=== PATIENT | female | born 1960 | race Two or more races ===

== ENCOUNTER 2016-10-29 18:15 | Emergency (ER) | payer MEDICAID ==
[~2016-10-29] VITALS: Ht 165.1 cm; Wt 104.3 kg
[2016-10-29 18:50] VITALS: BP 126/49
[2016-10-29 19:23] LABS: Urine Bilirubin Negative (Negative); Urine Color Yellow (Yellow); Urine Glucose Normal (Normal); Urine Ketone Negative (Negative); Urine Nitrite Negative (Negative); Urine RBC 17 /hpf (0 - 4); Urine Squamous Epithelial Cell FEW /hpf (<5); Urine Urobilinogen Normal (Negative); Urine pH 5.5 (5.0-8.0)
[2016-10-29 19:25] LABS: Urine Blood 1+ /uL (Negative)
== END 2016-10-29 20:30 | disposition left against medical advice (07) ==
LOC: ER 18:22
DX: M54.9 Dorsalgia, unspecified (principal); Z53.21 Procedure and treatment not carried out due to patient leaving prior to being seen by health care provider
CPT/HCPCS: 81001

== ENCOUNTER 2018-07-31 12:53 | Emergency (ER) | payer MEDICAID ==
[2018-07-31 13:32] VITALS: BP 141/61
[2018-07-31] MEDS ORDERED: KETOROLAC TROMETH 60MG/2ML VIAL IM ONE (14:00)
== END 2018-07-31 14:57 | disposition home or self-care (01) ==
LOC: ER 12:53
DX: M54.16 Radiculopathy, lumbar region (principal); M47.9 Spondylosis, unspecified; N20.0 Calculus of kidney; Z87.442 Personal history of urinary calculi
CPT/HCPCS: 72100; 96372; 99283; J1885

== ENCOUNTER 2019-05-25 12:06 | Emergency (ER) | payer MEDICAID ==
[~2019-05-25] VITALS: Ht 154.9 cm; Wt 99.3 kg
[2019-05-25 14:34] VITALS: BP 121/66
[2019-05-25] MEDS ORDERED: HYDROcodone-ACET 5/325MG TAB PO ONE (15:15)
== END 2019-05-25 15:47 | disposition home or self-care (01) ==
LOC: ER 12:06
DX: S82.51XA Displaced fracture of medial malleolus of right tibia, initial encounter for closed fracture (principal); S82.831A Other fracture of upper and lower end of right fibula, initial encounter for closed fracture; M19.90 Unspecified osteoarthritis, unspecified site; Z87.442 Personal history of urinary calculi; X50.1XXA Overexertion from prolonged static or awkward postures, initial encounter; Y93.89 Activity, other specified; Y99.8 Other external cause status; Y92.89 Other specified places as the place of occurrence of the external cause
CPT/HCPCS: 29505; 73610

== ENCOUNTER → 2021-07-30 | Emergency (ER) | payer MEDICAID ==
[~2021-07-30] VITALS: Ht 152.4 cm; Wt 78.2 kg
[~2021-07-30] MED LIST: FUROSEMIDE 20 MG/2 ML VIAL IV ONE; KETOROLAC TROMETH 30 MG/ML 1ML VIAL IV ONE; SODIUM CHLORIDE 0.9% 1,000 ML IVB ONE; TAMSULOSIN HYDROCHLORIDE 0.4 MG CAP PO ONE
[2021-07-30 13:37] LABS: Basophils # (auto) 0 10 ^3/uL (0-0.2); Basophils % (auto) 0.8 % (0.0-2.0); Eosinophils # (auto) 0.1 10 ^3/uL (0-0.8); Eosinophils % (auto) 1.8 % (0.0-7.0); Hematocrit 40.7 % (36.0-46.0); Hemoglobin 13.5 g/dL (12.2-16.2); Lymphocytes % (auto) 20.7 % (10.0-50.0); Mean Corpuscular Hemoglobin 30.1 pg (28.0-32.0); Mean Corpuscular Hgb Conc. 33.1 g/dL (32.0-36.0); Monocytes # (auto) 0.3 10 ^3/uL (0-1.3); Monocytes % (auto) 6.9 % (0.0-12.0); Neutrophils # (auto) 3.5 10 ^3/uL (1.6-8.6); Neutrophils % (auto) 69.8 % (37.0-80.0); Nucleated Red Blood Cells % 0.2 %; Red Blood Cells 4.47 10^6/uL (4.0-5.20); Red Cell Distribution Width 14.3 % (11.8-14.3)
[2021-07-30 13:51] LABS: Albumin 3.8 g/dL (3.4-5.0); Calcium 8.9 mg/dL (8.5-10.1); Potassium 4.7 mmol/L (3.5-5.1)
[2021-07-30 13:56] LABS: BUN/Creatinine Ratio 15.8; Bilirubin, Total 0.7 mg/dL (0.2-1.0); Total Protein 8.2 g/dL (6.4-8.2)
[2021-07-30 18:04] VITALS: BP 128/51
== END | disposition home or self-care (01) ==
LOC: ER 12:08
DX: N20.0 Calculus of kidney (principal)
CPT/HCPCS: 36415; 74176; 80053; 83690; 85025; 96361; 96374; 96375; 99284; J1885; J1940; J7030

== ENCOUNTER 2022-01-16 13:00 | Emergency (ER) | payer MEDICAID ==
[~2022-01-16] VITALS: Ht 157.5 cm; Wt 77.1 kg
[2022-01-16 14:22] LABS: Urine Bacteria NONE SEEN /hpf (None Seen); Urine Blood 3+ /uL (Negative); Urine Specific Gravity 1.006 (1.001-1.035); Urine WBC 93 /hpf (0 - 5)
[2022-01-16] MEDS ORDERED: HYDR-4902 PO ×2 (16:45→16:50)
[2022-01-16] MEDS ORDERED: CEPH-509 PO (17:08)
[2022-01-16 18:13] VITALS: BP 107/36
== END 2022-01-16 18:14 | disposition home or self-care (01) ==
LOC: ER 13:00
DX: S33.5XXA Sprain of ligaments of lumbar spine, initial encounter (principal); M51.9 Unspecified thoracic, thoracolumbar and lumbosacral intervertebral disc disorder; N39.0 Urinary tract infection, site not specified; I10 Essential (primary) hypertension; Z79.899 Other long term (current) drug therapy; X58.XXXA Exposure to other specified factors, initial encounter; Y93.89 Activity, other specified; Y92.89 Other specified places as the place of occurrence of the external cause; Y99.8 Other external cause status
CPT/HCPCS: 72131; 74176; 81001; 93005

== ENCOUNTER 2022-04-07 16:38 | Emergency (ER) | payer MEDICAID ==
[~2022-04-07] VITALS: Ht 165.1 cm; Wt 78.0 kg
[~2022-04-07 16:38] MED LIST changes: +CEPH-509 PO; -FUROSEMIDE 20 MG/2 ML VIAL IV ONE; +HYDR-4902 PO; -KETOROLAC TROMETH 30 MG/ML 1ML VIAL IV ONE; -SODIUM CHLORIDE 0.9% 1,000 ML IVB ONE; -TAMSULOSIN HYDROCHLORIDE 0.4 MG CAP PO ONE
[2022-04-07 17:55] LABS: Albumin 3.6 g/dL (3.4-5.0); Calcium 9.2 mg/dL (8.5-10.1); Potassium 4.1 mmol/L (3.5-5.1)
[2022-04-07 17:56] LABS: Urine Bacteria FEW /hpf (None Seen); Urine Blood 2+ /uL (Negative); Urine Specific Gravity 1.004 (1.001-1.035); Urine WBC 56 /hpf (0 - 5)
[2022-04-07 17:59] LABS: BUN/Creatinine Ratio 12.6; Bilirubin, Total 0.8 mg/dL (0.2-1.0); Total Protein 7.7 g/dL (6.4-8.2)
[2022-04-07 18:00] LABS: Basophils # (auto) 0 10 ^3/uL (0-0.2); Basophils % (auto) 0.7 % (0.0-2.0); Eosinophils # (auto) 0.1 10 ^3/uL (0-0.8); Eosinophils % (auto) 1.5 % (0.0-7.0); Hematocrit 38.8 % (36.0-46.0); Hemoglobin 12.6 g/dL (12.2-16.2); Lymphocytes % (auto) 23.2 % (10.0-50.0); Mean Corpuscular Hemoglobin 29.7 pg (28.0-32.0); Mean Corpuscular Hgb Conc. 32.4 g/dL (32.0-36.0); Mean Corpuscular Volume 91.8 fL (80.0-100.0); Monocytes # (auto) 0.3 10 ^3/uL (0-1.3); Monocytes % (auto) 8.2 % (0.0-12.0); Neutrophils # (auto) 2.8 10 ^3/uL (1.6-8.6); Neutrophils % (auto) 66.4 % (37.0-80.0); Nucleated Red Blood Cells % 0.1 %; Red Blood Cells 4.23 10^6/uL (4.0-5.20); Red Cell Distribution Width 14.1 % (11.8-14.3); White Blood Cell 4.2 10^3/uL (4.4-10.8)
[2022-04-07] MEDS ORDERED: CEPH-509 PO (19:25)
[2022-04-07 19:50] VITALS: BP 126/89
== END 2022-04-07 19:56 | disposition home or self-care (01) ==
LOC: ER 16:38
DX: N39.0 Urinary tract infection, site not specified (principal)
CPT/HCPCS: 36415; 80053; 81001; 82150; 83690; 85025; 93005

== ENCOUNTER 2023-04-01 11:04 | Inpatient (IN) | payer MEDICAID ==
[~2023-04-01] VITALS: Ht 165.1 cm; Wt 100.0 kg
[2023-04-01 11:44] LABS: Basophils # (auto) 0 10 ^3/uL (0-0.2); Basophils % (auto) 1.3 % (0.0-2.0); Eosinophils # (auto) 0.2 10 ^3/uL (0-0.8); Eosinophils % (auto) 5.4 % (0.0-7.0); Hematocrit 38.1 % (36.0-46.0); Hemoglobin 12.8 g/dL (12.2-16.2); Lymphocytes % (auto) 30.5 % (10.0-50.0); Mean Corpuscular Hemoglobin 30.7 pg (28.0-32.0); Mean Corpuscular Hgb Conc. 33.5 g/dL (32.0-36.0); Mean Corpuscular Volume 91.5 fL (80.0-100.0); Monocytes # (auto) 0.2 10 ^3/uL (0-1.3); Monocytes % (auto) 7.8 % (0.0-12.0); Neutrophils # (auto) 1.7 10 ^3/uL (1.6-8.6); Nucleated Red Blood Cells % 0.7 %; Red Blood Cells 4.17 10^6/uL (4.0-5.20); Red Cell Distribution Width 13.8 % (11.8-14.3); White Blood Cell 3.1 10^3/uL (4.4-10.8)
[2023-04-01 12:00] VITALS: PULSE 41; RESP 14; O2SAT 97
[2023-04-01 12:11] LABS: Albumin 3.7 g/dL (3.4-5.0); Calcium 8.9 mg/dL (8.5-10.1); Potassium 4.6 mmol/L (3.5-5.1)
[2023-04-01 12:13] LABS: BUN/Creatinine Ratio 18.9 (10.0-20.0); Bilirubin, Total 0.6 mg/dL (0.2-1.0); Total Protein 7.1 g/dL (6.4-8.2)
[2023-04-01] MEDS ORDERED: DOCUSATE SOD 100 MG CAP PO PRN (13:45)
[2023-04-01] MEDS ORDERED: MORPHINE SULFATE INJ 2 MG/ml SYRG IV PRN (13:45)
[2023-04-01] MEDS ORDERED: ACETAMINOPHEN 325 MG TAB PO PRN (13:45)
[2023-04-01] MEDS ORDERED: NITROGLYCERIN 0.4 MG SL TAB SL PRN (13:45)
[2023-04-01] MEDS ORDERED: ALEN70TA74 PO (13:46)
[2023-04-01] MEDS ORDERED: ATOR10TA52 PO (13:46)
[2023-04-01] MEDS ORDERED: LISI10TA34 PO (13:46)
[2023-04-01] MEDS ORDERED: LEVO75TA6 PO (13:46)
[2023-04-01 19:36] VITALS: PULSE 51; RESP 14; O2SAT 96
[2023-04-01] MEDS: ATORVASTATIN 20 MG TAB PO SCH (22:48)
[2023-04-02 06:09] LABS: Basophils # (auto) 0 10 ^3/uL (0-0.2); Basophils % (auto) 1.2 % (0.0-2.0); Eosinophils # (auto) 0.2 10 ^3/uL (0-0.8); Eosinophils % (auto) 7.2 % (0.0-7.0); Hematocrit 37.2 % (36.0-46.0); Hemoglobin 12.7 g/dL (12.2-16.2); Lymphocytes # (auto) 1.3 10 ^3/uL (0.4-5.4); Lymphocytes % (auto) 37.1 % (10.0-50.0); Mean Corpuscular Hemoglobin 31.2 pg (28.0-32.0); Mean Corpuscular Hgb Conc. 34.1 g/dL (32.0-36.0); Mean Corpuscular Volume 91.4 fL (80.0-100.0); Monocytes # (auto) 0.3 10 ^3/uL (0-1.3); Monocytes % (auto) 9.2 % (0.0-12.0); Neutrophils # (auto) 1.5 10 ^3/uL (1.6-8.6); Neutrophils % (auto) 45.3 % (37.0-80.0); Nucleated Red Blood Cells % 0.4 %; Red Blood Cells 4.07 10^6/uL (4.0-5.20); Red Cell Distribution Width 13.3 % (11.8-14.3); White Blood Cell 3.4 10^3/uL (4.4-10.8)
[2023-04-02 06:34] LABS: Albumin 3.4 g/dL (3.4-5.0); Calcium 9.1 mg/dL (8.5-10.1); Potassium 3.9 mmol/L (3.5-5.1)
[2023-04-02 06:38] LABS: BUN/Creatinine Ratio 20.7 (10.0-20.0); Bilirubin, Total 0.7 mg/dL (0.2-1.0); Total Protein 6.9 g/dL (6.4-8.2)
[2023-04-02 07:20] LABS: Folate (Folic Acid) 16.78 ng/mL (5.38-24)
[2023-04-02] MEDS: LEVOTHYROXINE SODIUM 50 MCG TAB PO SCH (07:34)
[2023-04-02 08:25] VITALS: PULSE 50; RESP 18; O2SAT 99
[2023-04-02 08:33] LABS: Urine Bacteria FEW /hpf (None Seen); Urine Blood Negative /uL (Negative); Urine Clarity HAZY (Clear); Urine Color Straw (Yellow); Urine Protein, UAD Negative (Negative); Urine Specific Gravity 1.011 (1.001-1.035); Urine Urobilinogen Normal (Negative); Urine WBC 127 /hpf (0 - 5); Urine pH 5.5 (5.0-8.0)
[2023-04-02 08:50] LABS: Alcohol, Urine < 3.0 mg/dL (0-10); Amphetamine Screen, Urine NEGATIVE (NEGATIVE); Barbiturate Scree,Urine NEGATIVE (NEGATIVE); Benzodiazephine Screen, Urine NEGATIVE (NEGATIVE); Cannabinoid Screen, Urine NEGATIVE (NEGATIVE); Cocaine Screen, Urine NEGATIVE (NEGATIVE); Opiate Scree,Urine NEGATIVE (NEGATIVE); Phencyclidine Screen, Urine NEGATIVE (NEGATIVE)
[2023-04-02] MEDS: LISINOPRIL 10 MG TAB PO SCH (09:37)
[2023-04-02] MEDS: PANTOPRAZOLE 40 MG TAB PO SCH (09:37)
[2023-04-02] MEDS: ENOXAPARIN SOD 40 MG/0.4 ML SYRINGE SC SCH (09:38)
[2023-04-02 10:52] VITALS: BP 118/55; PULSE 48; RESP 14
[2023-04-02] MEDS ORDERED: cefTRIAXone 1GM/50ML D5W 50 ML IV ONE (11:30)
[2023-04-02 17:45] VITALS: BP 145/46; PULSE 46; RESP 16; TEMP 97.8; O2SAT 96
[2023-04-02 18:00] VITALS: BP 131/53; PULSE 48; RESP 16; TEMP 98; O2SAT 95
[2023-04-02 20:00] VITALS: BP 131/53; PULSE 45; PULSE 48; RESP 16; TEMP 98
[2023-04-02] MEDS: ATORVASTATIN 20 MG TAB PO SCH (21:08)
[2023-04-02 22:00] VITALS: BP 105/42; PULSE 49; RESP 18; TEMP 97.7; O2SAT 98
[2023-04-03 05:00] VITALS: BP 104/52; PULSE 47; RESP 18; TEMP 97.6; O2SAT 95
[2023-04-03] MEDS: LEVOTHYROXINE SODIUM 50 MCG TAB PO SCH (06:00)
[2023-04-03 07:01] LABS: Basophils # (auto) 0 10 ^3/uL (0-0.2); Basophils % (auto) 1.1 % (0.0-2.0); Eosinophils # (auto) 0.2 10 ^3/uL (0-0.8); Hematocrit 38.1 % (36.0-46.0); Hemoglobin 12.8 g/dL (12.2-16.2); Lymphocytes # (auto) 1.1 10 ^3/uL (0.4-5.4); Lymphocytes % (auto) 29.3 % (10.0-50.0); Mean Corpuscular Hemoglobin 31.1 pg (28.0-32.0); Mean Corpuscular Hgb Conc. 33.7 g/dL (32.0-36.0); Mean Corpuscular Volume 92.5 fL (80.0-100.0); Monocytes # (auto) 0.4 10 ^3/uL (0-1.3); Monocytes % (auto) 10.4 % (0.0-12.0); Neutrophils # (auto) 2.1 10 ^3/uL (1.6-8.6); Neutrophils % (auto) 53.2 % (37.0-80.0); Nucleated Red Blood Cells % 0.2 %; Red Blood Cells 4.12 10^6/uL (4.0-5.20); Red Cell Distribution Width 13.8 % (11.8-14.3); White Blood Cell 3.9 10^3/uL (4.4-10.8)
[2023-04-03 07:30] VITALS: BP 131/53; PULSE 42; PULSE 48; RESP 16; TEMP 98
[2023-04-03 07:59] LABS: Potassium 3.7 mmol/L (3.5-5.1)
[2023-04-03 08:07] LABS: BUN/Creatinine Ratio 20.4 (10.0-20.0); Calcium 9.3 mg/dL (8.5-10.1)
[2023-04-03] MEDS: ENOXAPARIN SOD 40 MG/0.4 ML SYRINGE SC SCH (08:53)
[2023-04-03] MEDS: cefTRIAXone 1GM/50ML D5W 50 ML IV SCH ×2 (08:53→09:00)
[2023-04-03] MEDS: PANTOPRAZOLE 40 MG TAB PO SCH (08:53)
[2023-04-03] MEDS: LISINOPRIL 10 MG TAB PO SCH (08:54)
[2023-04-03 09:00] VITALS: BP 119/48; PULSE 53; RESP 18; TEMP 97.9; O2SAT 97
[2023-04-03] MEDS ORDERED: NITR-52 PO (10:25)
[2023-04-03 13:00] VITALS: BP 122/57; PULSE 51; RESP 20; TEMP 98.1; O2SAT 97
[2023-04-03 13:58] VITALS: BP 119/48; TEMP 98
[2023-04-03 16:25] VITALS: BP 101/42; PULSE 50; RESP 17; TEMP 98.2; O2SAT 94
== END 2023-04-03 16:00 | disposition home or self-care (01) | DRG 204 ==
LOC: ER 11:04 → EDBD 11:04 → TELE 13:45 → TELE-WESTW 04-02 17:25
PROVIDERS: ADMIT Internal Medicine Pulmonary Disease; ATTEND Internal Medicine
DX: R55 Syncope and collapse (principal); D70.9 Neutropenia, unspecified; R00.1 Bradycardia, unspecified; I10 Essential (primary) hypertension; E03.9 Hypothyroidism, unspecified; E66.9 Obesity, unspecified; E78.5 Hyperlipidemia, unspecified; N39.0 Urinary tract infection, site not specified; Z68.36 Body mass index [BMI] 36.0-36.9, adult; Z87.442 Personal history of urinary calculi; Z71.3 Dietary counseling and surveillance
CPT/HCPCS: 36415; 70450; 71045; 80048; 80053; 80061; 80307; 81001; 82607; 82746; 83036; 83735; 83880; 84439; 84443; 84479; 84484; 85025; 93005; 93017; 93306; 96365; 96372; G0378; J0696

== ENCOUNTER 2023-11-06 11:59 | Emergency (ER) | payer MEDICAID ==
[~2023-11-06] VITALS: Ht 152.4 cm; Wt 82.4 kg
[~2023-11-06 11:59] MED LIST changes: +ALEN70TA74 PO; +ATOR10TA52 PO; -CEPH-509 PO; +LEVO75TA6 PO; +LISI10TA34 PO; +NITR-52 PO
[2023-11-06 13:15] LABS: Urine Bacteria FEW /hpf (None Seen); Urine Blood Negative /uL (Negative); Urine Clarity HAZY (Clear); Urine Hyaline Cast FEW /lpf (0 - 2); Urine Protein, UAD Negative (Negative); Urine Specific Gravity 1.007 (1.001-1.035); Urine Urobilinogen Normal (Negative); Urine WBC 120 /hpf (0 - 5)
[2023-11-06 13:18] LABS: Urine Color Straw (Yellow)
[2023-11-06 13:30] LABS: Basophils # (auto) 0.1 10 ^3/uL (0-0.2); Basophils % (auto) 1.3 % (0.0-2.0); Eosinophils # (auto) 0.2 10 ^3/uL (0-0.8); Eosinophils % (auto) 4.4 % (0.0-7.0); Hematocrit 38.3 % (36.0-46.0); Hemoglobin 12.9 g/dL (12.2-16.2); Lymphocytes # (auto) 0.9 10 ^3/uL (0.4-5.4); Lymphocytes % (auto) 24.6 % (10.0-50.0); Mean Corpuscular Hgb Conc. 33.7 g/dL (32.0-36.0); Mean Corpuscular Volume 92.2 fL (80.0-100.0); Monocytes # (auto) 0.2 10 ^3/uL (0-1.3); Monocytes % (auto) 6.1 % (0.0-12.0); Neutrophils # (auto) 2.4 10 ^3/uL (1.6-8.6); Neutrophils % (auto) 63.6 % (37.0-80.0); Nucleated Red Blood Cells % 0.1 %; Red Blood Cells 4.16 10^6/uL (4.0-5.20); Red Cell Distribution Width 13.4 % (11.8-14.3); White Blood Cell 3.8 10^3/uL (4.4-10.8)
[2023-11-06 13:33] LABS: Chloride 108 mmol/L (98-107); Potassium 4.2 mmol/L (3.5-5.1); Sodium 141 mmol/L (136-145)
[2023-11-06 13:34] LABS: Anion Gap 5 (5-15); Calcium 9.8 mg/dL (8.5-10.1); Carbon Dioxide 28 mmol/L (20-30)
[2023-11-06] MEDS: SODIUM CHLORIDE 0.9% 1,000 ML IVB ONE (13:35)
[2023-11-06] MEDS: KETOROLAC TROMETH 30 MG/ML 1ML VIAL IV ONE (13:35)
[2023-11-06 13:39] LABS: BUN/Creatinine Ratio 8.3 (10.0-20.0); Blood Urea Nitrogen 8 mg/dL (9-23); Glucose 76 mg/dL (74-106)
[2023-11-06] MEDS ORDERED: HYDR-4902 PO (14:08)
[2023-11-06] MEDS ORDERED: NITR-87 PO (14:08)
[2023-11-06 14:53] VITALS: BP 130/60; PULSE 59; RESP 19; TEMP 98; O2SAT 98
== END 2023-11-06 14:59 | disposition home or self-care (01) ==
LOC: ER 11:59
DX: N39.0 Urinary tract infection, site not specified (principal); R10.9 Unspecified abdominal pain; I10 Essential (primary) hypertension; Z87.442 Personal history of urinary calculi; Z90.89 Acquired absence of other organs
CPT/HCPCS: 36415; 74176; 80048; 81001; 85025; 96361; 96374; 99285; J1885; J7030

== ENCOUNTER 2024-01-20 11:52 | Inpatient (IN) | payer MEDICAID ==
[~2024-01-20] VITALS: Ht 160 cm; Wt 83.5 kg
[~2024-01-20 11:52] MED LIST changes: +NITR-87 PO
[2024-01-20] MEDS: ONDANSETRON HCL 4 MG/2 ML VIAL IV ONE (12:46)
[2024-01-20] MEDS: ASPirin 325 MG TAB PO ONE (12:46)
[2024-01-20] MEDS: MORPHINE SULFATE INJ 2 MG/ml SYRG IV ONE (12:47)
[2024-01-20 12:48] LABS: Basophils # (auto) 0.1 10 ^3/uL (0-0.2); Eosinophils # (auto) 0.2 10 ^3/uL (0-0.8); Hematocrit 38.4 % (36.0-46.0); Hemoglobin 12.9 g/dL (12.2-16.2); Lymphocytes # (auto) 0.9 10 ^3/uL (0.4-5.4); Lymphocytes % (auto) 16.7 % (10.0-50.0); Mean Corpuscular Hemoglobin 30.6 pg (28.0-32.0); Mean Corpuscular Hgb Conc. 33.6 g/dL (32.0-36.0); Mean Corpuscular Volume 91.2 fL (80.0-100.0); Monocytes # (auto) 0.3 10 ^3/uL (0-1.3); Monocytes % (auto) 5.9 % (0.0-12.0); Neutrophils % (auto) 72.4 % (37.0-80.0); Red Blood Cells 4.21 10^6/uL (4.0-5.20); Red Cell Distribution Width 13.5 % (11.8-14.3); White Blood Cell 5.5 10^3/uL (4.4-10.8)
[2024-01-20 12:50] LABS: Chloride 106 mmol/L (98-107); Potassium 4.4 mmol/L (3.5-5.1); Sodium 138 mmol/L (136-145)
[2024-01-20 12:51] LABS: Anion Gap 5 (5-15); Calcium 9.9 mg/dL (8.5-10.1); Carbon Dioxide 27 mmol/L (20-30)
[2024-01-20 12:56] LABS: Blood Urea Nitrogen 15 mg/dL (9-23); Glucose 89 mg/dL (74-106)
[2024-01-20 14:27] LABS: Urine Bacteria None Seen /hpf (None Seen)
[2024-01-20 15:00] LABS: Urine Blood 2+ /uL (Negative); Urine Clarity Clear (Clear); Urine Color Colorless (Yellow); Urine Protein, UAD Negative (Negative); Urine Specific Gravity 1.005 (1.001-1.035); Urine Urobilinogen Normal (Negative); Urine WBC 50 /hpf (0 - 5)
[2024-01-20] MEDS ORDERED: ACETAMINOPHEN 325 MG TAB PO PRN ×2 (15:30)
[2024-01-20] MEDS ORDERED: MORPHINE SULFATE INJ 2 MG/ml SYRG IV PRN ×2 (15:30)
[2024-01-20] MEDS ORDERED: HYDROcodone-ACET 5/325MG TAB PO PRN (15:30)
[2024-01-20] MEDS ORDERED: NITROGLYCERIN 0.4 MG SL TAB SL PRN (15:30)
[2024-01-20] MEDS: IOHEXOL 350 MG/ML 100ML IJ ONE (15:47)
[2024-01-20] MEDS: SODIUM CHLORIDE 0.9% 1,000 ML IV SCH (15:51)
[2024-01-20 16:07] LABS: Triglycerides 177 mg/dL (< 150)
[2024-01-20 16:08] LABS: LDL Cholesterol 88 mg/dL (< 100)
[2024-01-20 16:09] LABS: Cholesterol 156 mg/dL (< 200); HDL Cholesterol 42 mg/dL (40-59)
[2024-01-20 16:56] VITALS: BP 117/46; PULSE 52; RESP 14; TEMP 97.6; O2SAT 98
[2024-01-20] MEDS ORDERED: ATORVASTATIN 20 MG TAB PO SCH (22:00)
[2024-01-21] MEDS ORDERED: LEVOTHYROXINE SODIUM 50 MCG TAB PO SCH (07:00)
[2024-01-21] MEDS ORDERED: ASPirin 81 mg TAB PO SCH (10:00)
[2024-01-21] MEDS ORDERED: ENOXAPARIN SOD 40 MG/0.4 ML SYRINGE SC SCH (10:00)
[2024-01-21] MEDS ORDERED: LISINOPRIL 5 MG TAB PO SCH (10:00)
== END 2024-01-21 00:01 | disposition left against medical advice (07) | DRG 198 ==
LOC: ER 11:52 → TELE 15:32
PROVIDERS: ADMIT Registered Nurse; ATTEND Registered Nurse
DX: I24.9 Acute ischemic heart disease, unspecified (principal); E03.9 Hypothyroidism, unspecified; E66.9 Obesity, unspecified; I10 Essential (primary) hypertension; Z53.29 Procedure and treatment not carried out because of patient's decision for other reasons; E78.5 Hyperlipidemia, unspecified; E11.9 Type 2 diabetes mellitus without complications; Z68.32 Body mass index [BMI] 32.0-32.9, adult; Z87.442 Personal history of urinary calculi; Z79.899 Other long term (current) drug therapy; Z79.4 Long term (current) use of insulin
CPT/HCPCS: 36415; 70450; 71045; 71275; 80048; 80061; 81001; 83036; 84443; 84484; 85025; 85379; 93005; 93970; 96374; 96375; G0378; J2405

== ENCOUNTER 2024-02-03 09:25 | Day surgery (SDC) | payer MEDICAID ==
[~2024-02-03] VITALS: Ht 154.9 cm; Wt 83.0 kg
[2024-02-03] VITALS (8 sets, daily range): BP systolic 111–161; BP diastolic 65–96; PULSE 52–57; RESP 15–20; TEMP 97.8; O2SAT 95–99
[~2024-02-03 09:25] MED LIST changes: -HYDR-4902 PO; -NITR-52 PO; -NITR-87 PO
[2024-02-03] MEDS ORDERED: ANGIOMAX 250 MG VIAL IV ONE (11:11)
[2024-02-03] MEDS ORDERED: VERAPAMIL 2.5MG/ML INJ 2ML VIAL IV ONE (11:11)
[2024-02-03] MEDS ORDERED: MIDAZOLAM HCL 2MG/2ML 2ml VIAL (1mg/ml) ONE (11:12)
[2024-02-03] MEDS ORDERED: fentaNYL CITRATE 100 MCG/2 ML VL ONE (11:12)
[2024-02-03] MEDS ORDERED: IODIXANOL 320MG/ML 100ML BTL IV ONE (11:12)
[2024-02-03] MEDS ORDERED: SODIUM CHL 0.9% 0 ML ONE (11:12)
[2024-02-03] MEDS ORDERED: LIDOCAINE 2%HCL (LOCAL ANESTH.) INJ 20ML MDV ONE (11:41)
[2024-02-03] MEDS ORDERED: HEPARIN SODIUM (PORCINE) 5000 UNITS/ML 1ML VIAL ONE (11:57)
== END 2024-02-03 14:50 | disposition home or self-care (01) ==
LOC: CATH 09:25
PROVIDERS: ATTEND Internal Medicine
DX: R94.39 Abnormal result of other cardiovascular function study (principal); I25.118 Atherosclerotic heart disease of native coronary artery with other forms of angina pectoris; I10 Essential (primary) hypertension; R07.9 Chest pain, unspecified; E78.00 Pure hypercholesterolemia, unspecified; E03.9 Hypothyroidism, unspecified; Z79.890 Hormone replacement therapy; Z79.899 Other long term (current) drug therapy; Z98.890 Other specified postprocedural states; Z82.49 Family history of ischemic heart disease and other diseases of the circulatory system; Z80.9 Family history of malignant neoplasm, unspecified
CPT/HCPCS: 93458; C1769; C1894; J1644; J2250; J3010; Q9967; 99152

== ENCOUNTER 2024-03-17 09:59 | Emergency (ER) | payer MEDICAID ==
[~2024-03-17] VITALS: Ht 152.4 cm; Wt 81.3 kg
[2024-03-17] MEDS: ACETAMINOPHEN 325 MG TAB PO ONE (10:25)
[2024-03-17 11:10] VITALS: BP 113/58; PULSE 66; RESP 17; O2SAT 95
[2024-03-17 11:15] VITALS: TEMP 99.7
[2024-03-17 12:53] LABS: COVID19 ANTIGEN SOFIA FIA NEGATIVE (NEGATIVE)
[2024-03-17 12:54] LABS: Rapid Influenza A Negative (Negative); Rapid Influenza B Negative (Negative)
[2024-03-17] MEDS ORDERED: IBUP-1455 PO (13:28)
[2024-03-17] MEDS ORDERED: PROM1SOL4 PO (13:28)
== END 2024-03-17 13:48 | disposition home or self-care (01) ==
LOC: ER 09:59
DX: B34.9 Viral infection, unspecified (principal); E11.9 Type 2 diabetes mellitus without complications; I10 Essential (primary) hypertension; Z90.89 Acquired absence of other organs; Z20.822 Contact with and (suspected) exposure to COVID-19; Z87.442 Personal history of urinary calculi
CPT/HCPCS: 36415; 87426; 87804

== ENCOUNTER 2024-10-08 11:43 | Inpatient (IN) | payer MEDICAID ==
[~2024-10-08] VITALS: Ht 154.9 cm; Wt 86.1 kg
[~2024-10-08 11:43] MED LIST changes: +IBUP-1455 PO; +PROM1SOL4 PO
--- NOTE | 2024-10-08 12:20 | ED.PDOC ---
HPI Comments 64 y/o F, presents to the ED for CC chest pain. Patient states, she was at PCP's office for routine follow up when she was relayed to the ED for left sided non- radiating chest pain. Patient comments on, experiencing chest pain x months which has never cause her concern. Patient denies shortness of breath, fever, chills, body-aches, or N/V/D. No other symptoms or modifying factors at this time. Chief Complaint: Chest Pain Time Seen by MD: 12:00 Primary Care Provider: RIVAS Reviewed Notes: Nurses Notes, Medications, Allergies Allergies: Coded Allergies: NO KNOWN ALLERGIES (Unverified , 01/31/24) Home Meds Active Scripts Promethazine-Dm (Promethazine Dm 6.25-15 mg/5Ml) 1 Jessica Jessica, 10 JESSICA PO TID PRN, #200 ML Prov:JOSE LUIS JUAREZ 03/17/24 Ibuprofen Micronized (Ibuprofen) 800 Mg Tab, 800 MG PO TID PRN, #30 TAB Prov:JOSE LUIS JUAREZ 03/17/24 Reported Medications Atorvastatin Calcium (ATORVASTATIN CALCIUM) 10 Mg Tab, 1 TAB PO DAILY for high cholesterol 04/01/23 Alendronate Sodium (Alendronate Sodium) 70 Mg Tab, 1 TAB PO QWEEKLY for osteoporosis 04/01/23 Lisinopril (Lisinopril) 10 Mg Tab, 1 TAB PO DAILY for htn 04/01/23 Levothyroxine Sodium (Levothyroxine Sodium) 75 Mcg Tab, 1 TAB PO DAILY for low thyroid 04/01/23 Information Source: Patient Mode of Arrival: Ambulatory Severity: Moderate Timing: Months Duration: Since onset Prehospital treatment: None Location: Chest (L) Radiation: No Radiation Onset: At Rest Cardiac Risk Factors: None PE Risk Factors: None History of: None Modifying Factors: Nothing Associated Signs and Symptoms: None Past Medical History PAST MEDICAL HISTORY: DM, HTN, Kidney Stones Surgical History: Thyroidectomy SAMPLE COORDINATOR History: Denies all SAMPLE COORDINATOR Hx Family History Family History: Unknown Social History Smoker: Non-Smoker Alcohol: Denies ETOH Use Drugs: Denies Drug Use Lives In: Home Constitutional: denies: chills, diaphoresis, fatigue, fever, malaise, sweats, weakness, others EENTM: denies: blurred vision, double vision, ear bleeding, ear discharge, ear drainage, ear pain, ear ringing, eye pain, eye redness, hearing loss, mouth pain, mouth swelling, nasal discharge, nose bleeding, nose congestion, nose pain, photophobia, tearing, throat pain, throat swelling, voice changes, others Respiratory: denies: cough, hemoptysis, orthopnea, SOB at rest, shortness of breath, SOB with excertion, stridor, wheezing, others Cardiovascular: denies: chest pain, dizzy spells, diaphoresis, Dyspnea on exertion, edema, irregular heart beat, left arm pain, lightheadedness, palpitations, PND, syncope, others Gastrointestinal: denies: abdomen distended, abdominal pain, blood streaked bowels, constipated, diarrhea, dysphagia, difficulty swallowing, hematemesis, melena, nausea, poor appetite, poor fluid intake, rectal bleeding, rectal pain, vomiting, others Genitourinary: denies: abnormal vagina bleeding, burning, dyspareunia, dysuria, flank pain, frequency, hematuria, incontinence, pain, , vagina discharge, urgency, others Neurological: denies: dizziness, fainting, headache, left sided numbness, left sided weakness, numbness, paresthesia, pre-existing deficit, right sided numbness, right sided weakness, seizure, speech problems, tingling, tremors, weakness, others Musculoskeletal: denies: back pain, gout, joint pain, joint swelling, muscle pain, muscle stiffness, neck pain, others Integumetry: denies: bruises, change in color, change in hair/nails, dryness, laceration, lesions, lumps, rash, wounds, others Allergic/Immunocompromised: denies: Difficulty Healing, Frequent Infections, Hives, Itching, others Hematologic/Lymphatic: denies: anemia, blood clots, easy bleeding, easy bruising, swollen glands, others Endocrine: denies: excessive hunger, excessive sweating, excessive thirst, excessive urination, flushing, intolerance to cold, intolerance to heat, unex plained weight gain, unexplained weight loss, others Psychiatric: denies: anxiety, bipolar disorder, depression, hopeless, panic disorder, schizophrenia, sleepless, suicidal, others All Other Systems: Reviewed and Negative Physical Exam General Appearance: Mild Distress HEENT: Normal ENT Inspection, Pharynx Normal, TMs Normal Neck: Full Range of Motion, Non-Tender, Normal, Normal Inspection Respiratory: Chest Non-Tender, Lungs Clear, No Accessory Muscle Use, No Respiratory Distress, Normal Breath Sounds Cardiovascular: Bradycardia, No Edema, No JVD, No Murmur, No Gallop Breast Exam: Deferred Gastrointestinal: No Organomegaly, Non Tender, No Pulsatile Mass, Normal Bowel Sounds, Soft Genitalia: Deferred Pelvic: Deferred Rectal: Deferred Extremities: No calf tenderness, Normal capillary refill, Normal inspection, Normal range of motion, Non-tender, No pedal edema Musculoskeletal : Apperance: Normal Neurologic: Alert, manager military II-XII nml as Tested, No Motor Deficits, Normal Affect, Normal Mood, No Sensory Deficits Cerebellar Function: Normal Reflexes: Normal Skin: Dry, Normal Color, Warm Lymphatic: No Adenopathy EKG EKG : Pulse Rate (adult): 46 Bristow: Normal Cardiac Rhythm: SB Was a procedure done? Was a procedure done?: No CP Differential Dx Differential Diagnosis: N/A Differential Diagnosis: CHF Differential Diagnosis: Angina, Chest Wall Pain, Costochondritis X-Ray, Labs, Meds, VS Vital Signs Date Time Temp Pulse Resp B/P (MAP) Pulse Ox O2 Delivery O2 Flow Rate FiO2 10/08/24 13:00 110/41 10/08/24 12:50 42 10/08/24 12:31 43 10/08/24 12:31 46 10/08/24 12:04 46 10/08/24 12:00 97.6 45 18 125/39 (67) 98 Lab Test 10/08/24 13:11 10/08/24 12:13 Range/Units Troponin I High Sensitivity Pending 12 </=34 ng/L Thyroid Stimulating Hormone (TSH) Pending White Blood Count 3.4 L 4.4-10.8 10^3/uL Red Blood Count 4.10 4.0-5.20 10^6/uL Hemoglobin 12.6 12.2-16.2 g/dL Hematocrit 38.3 36.0-46.0 % Mean Corpuscular Volume 93.5 80.0-100.0 fL Mean Corpuscular Hemoglobin 30.9 28.0-32.0 pg Mean Corpuscular Hemoglobin Concent 33.0 32.0-36.0 g/dL Red Cell Distribution Width 13.8 11.8-14.3 % Platelet Count 142 140-450 10^3/uL Mean Platelet Volume 7.9 6.9-10.8 fL Neutrophils (%) (Auto) 59.5 37.0-80.0 % Lymphocytes (%) (Auto) 26.7 10.0-50.0 % Monocytes (%) (Auto) 7.0 0.0-12.0 % Eosinophils (%) (Auto) 5.6 0.0-7.0 % Basophils (%) (Auto) 1.2 0.0-2.0 % Neutrophils # (Auto) 2.1 1.6-8.6 10 ^3/uL Lymphocytes # (Auto) 0.9 0.4-5.4 10 ^3/uL Monocytes # (Auto) 0.2 0-1.3 10 ^3/uL Eosinophils # (Auto) 0.2 0-0.8 10 ^3/uL Basophils # (Auto) 0 0-0.2 10 ^3/uL Nucleated Red Blood Cells 0.1 % Sodium Level 141 136-145 mmol/L Potassium Level 4.7 3.5-5.1 mmol/L Chloride Level 108 H 98-107 mmol/L Carbon Dioxide Level 28 20-31 mmol/L Anion Gap 5 5-15 Blood Urea Nitrogen 12 9-23 mg/dL Creatinine 1.03 H 0.550-1.02 mg/dL Glomerular Filtration Rate Calc 61 >90 mL/min BUN/Creatinine Ratio 11.7 10.0-20.0 Serum Glucose 94 74-106 mg/dL Calcium Level 10.1 8.7-10.4 mg/dL Magnesium Level 1.8 1.6-2.6 mg/dL Total Bilirubin 0.5 0.2-1.0 mg/dL Aspartate Amino Transferase (AST) 18 13-40 U/L Alanine Aminotransferase (ALT) 21 7-40 U/L Alkaline Phosphatase 82 46-116 U/L Total Protein 6.9 5.7-8.2 g/dL Albumin 4.4 3.2-4.8 g/dL Current Medications Medications (Trade) Dose Ordered Sig/Linda Route Start Time Stop Time Status Last Admin Dopamine HCl/ Dextrose 250 ml @ 13.688 mls/ hr [id number] ONCE IV 10/08/24 12:30 10/09/24 06:45 10/08/24 13:00 IV Hep-Lock was established. The CBC and chemistry panel is within normal limits. The patient's troponin level is negative At this time, the patient will be admitted to the hospitalist. The patient was remained bradycardic with this the 2nd EKG We did contact Cardiology and they are aware of the patient They will be consulting on this patient We feel that this patient most likely is a complete heart block and will need a pacemaker The patient was being admitted at this time We have discussed the findings with the patient and they are in agreement with the management. Images Reviewed?: Images reviewed and evaluated by me Time of 1ST Reevaluation: 12:30 Reevaluation 1ST: Unchanged Patient Education/Counseling: Diagnosis, Treatment, Prognosis Family Education/Counseling: No Family Present Departure 1 Departure Time of Disposition: 13:28 Impression: Primary Impression: Complete heart block Disposition: ADMITTED INPATIENT Admit to: [facility] Condition: Guarded Critical Care Note Critical Care Time?: Yes (45 min-critical care time only) Stability Stability form required: Yes Unstable for transfer: ICU, CCU, PCU, [facility] (Intensive VS monitoring), ED Physician Assesment (Clinical assesment) Heart Score Heart Score: Heart Score Response (Comments) Value History Moderate Suspicious 1 EKG Repolarization Disturb 1 Age 45-64 1 Risk Factors 1 or 2 risk factors 1 Troponin Normal limit 0 Total 4 I personally scribed for KRISTINA LANGE MD ([email or web address]) on 10/08/24 at 12:20. Elec tronically submitted by Dawna Boyer ([email or web address]). I personally scribed for KRISTINA LANGE MD ([email or web address]) on 10/08/24 at 12:28. Electronically submitted by Dawna Boyer ([email or web address]). KRISTIAN LANGE MD Oct 08, 2024 12:20
--- NOTE | 2024-10-08 12:26 | DVH ---
CHEST RADIOGRAPH Indication: CP Technique: Frontal and lateral view of the chest was obtained Comparison: None FINDINGS: Lines and Tubes: None Lungs: Clear Pleura: No effusion. No pneumothorax. Cardiomediastinal contours: Unremarkable Bones: Unremarkable IMPRESSION: No evidence of acute disease.
[2024-10-08 12:32] LABS: Basophils # (auto) 0 10 ^3/uL (0-0.2); Basophils % (auto) 1.2 % (0.0-2.0); Eosinophils # (auto) 0.2 10 ^3/uL (0-0.8); Eosinophils % (auto) 5.6 % (0.0-7.0); Hematocrit 38.3 % (36.0-46.0); Hemoglobin 12.6 g/dL (12.2-16.2); Lymphocytes # (auto) 0.9 10 ^3/uL (0.4-5.4); Lymphocytes % (auto) 26.7 % (10.0-50.0); Mean Corpuscular Hemoglobin 30.9 pg (28.0-32.0); Mean Corpuscular Volume 93.5 fL (80.0-100.0); Monocytes # (auto) 0.2 10 ^3/uL (0-1.3); Neutrophils # (auto) 2.1 10 ^3/uL (1.6-8.6); Neutrophils % (auto) 59.5 % (37.0-80.0); Nucleated Red Blood Cells % 0.1 %; Platelet Count (auto) 142 10^3/uL (140-450); Red Cell Distribution Width 13.8 % (11.8-14.3); White Blood Cell 3.4 10^3/uL (4.4-10.8)
[2024-10-08 12:55] LABS: Alanine Aminotransferase 21 U/L (7-40); Albumin 4.4 g/dL (3.2-4.8); Alkaline Phosphatase 82 U/L (46-116); Anion Gap 5 (5-15); Aspartate Aminotransferase 18 U/L (13-40); BUN/Creatinine Ratio 11.7 (10.0-20.0); Blood Urea Nitrogen 12 mg/dL (9-23); Calcium 10.1 mg/dL (8.7-10.4); Carbon Dioxide 28 mmol/L (20-31); Glucose 94 mg/dL (74-106); Magnesium 1.8 mg/dL (1.6-2.6); Potassium 4.7 mmol/L (3.5-5.1); Sodium 141 mmol/L (136-145)
[2024-10-08 12:56] LABS: Bilirubin, Total 0.5 mg/dL (0.2-1.0); Total Protein 6.9 g/dL (5.7-8.2)
[2024-10-08 13:00] LABS: Chloride 108 mmol/L (98-107)
[2024-10-08] MEDS: DOPamine 1600MCG/ML D5W 250 ML IV ONE (13:00)
--- NOTE | 2024-10-08 14:06 | DVHINCON2 ---
GILES BOB [facility] 10/08/24 1406: Date Seen: Oct 08, 2024 Referring Physician MD Yvan Reason for Consultation Chest pain and bradycardia History of Present Illness This is a 64-year-old female patient who presents to the emergency room after being prompted by her primary care physician to come for bradycardia. The patient reports that she was originally at her primary care physician's office (Dr. Canales) and was told that her heart rate was low and that she needed to come to the emergency room. She came to the emergency room for further evaluation. While she is here, she also mentioned that she has been having chest pain for approximately three weeks' duration. At the time of assessment, she denies any chest pain. But states that since she is here she would like to let us know that she been having intermittent chest pain. She describes it as unprovoked, intermittent, a "pinching" sensation, and left-sided without any radiation. She denies any associated symptoms. Cardiology has now been consulted for further workup. Initial twelve lead electrocardiogram reveals sinus bradycardia heart rate in low 40s. Initial troponin level of 12ng/L. Significant past medical history includes hypertension, dyslipidemia, thyroid disease, kidney stones, and osteoporosis. The patient reports she was also recently diagnosed with breast cancer in June 2024. She states that she has not had any kind of treatment as they are planning for a mastectomy, but have told her that she would need to be evaluated by Cardiology first. Apparently, the patient reports that she has been told in the past that she may eventually need a pacemaker. The patient reports that she sees a transport coordinator , , in the outpatient setting. She reports a recent visit with him last month in which there were no plans for pacemaker at that time. Past Medical History Past medical history reviewed. No other significant than mentioned above. Past Surgical History Thyroidectomy Family History: FH: cancer G8 MOTHER G8 FATHER Family History Family history reviewed. Social History Denies the use of tobacco, alcohol or illicit drugs. Allergies: Coded Allergies: NO KNOWN ALLERGIES (Unverified , 01/31/24) Home Meds Active Scripts Promethazine-Dm (Promethazine Dm 6.25-15 mg/5Ml) 1 Jessica Jessica, 10 JESSICA PO TID PRN, #200 ML Prov:JOSE LUIS JUAREZ [facility] 03/17/24 Ibuprofen Micronized (Ibuprofen) 800 Mg Tab, 800 MG PO TID PRN, #30 TAB Prov:JOSE LUIS JUAREZ 03/17/24 Reported Medications Atorvastatin Calcium (ATORVASTATIN CALCIUM) 10 Mg Tab, 1 TAB PO DAILY for high cholesterol 04/01/23 Alendronate Sodium (Alendronate Sodium) 70 Mg Tab, 1 TAB PO QWEEKLY for osteoporosis 04/01/23 Lisinopril (Lisinopril) 10 Mg Tab, 1 TAB PO DAILY for htn 04/01/23 Levothyroxine Sodium (Levothyroxine Sodium) 75 Mcg Tab, 1 TAB PO DAILY for low thyroid 04/01/23 Home Meds Home medications reviewed. Review of Systems Constitutional: No symptom reported Ears, Nose, & Throat: No symptom reported Eyes: No symptom reported Neurological: No symptoms reported Pulmonary/Respiratory: No symptoms reported Cardiovascular: No symptom reported Gastrointestinal: No symptom reported Genitourinary: No symptom reported Musculoskeletal: No symptom reported Skin: No symptom reported Psychiatric: No symptom reported Endocrine: No symptom reported Hematologic/Lymphatic: No symptom reported Vital Signs Vital Signs Date Time Temp Pulse Resp B/P (MAP) Pulse Ox O2 Delivery O2 Flow Rate FiO2 10/08/24 13:00 110/41 10/08/24 12:50 42 10/08/24 12:48 13 95 10/08/24 12:00 97.6 Physical Exam General Appearance: Cooperative. Well-developed. Well-nourished. No acute distress. Head Exam: Normal inspection Neck Exam: Normal inspection. Pulmonary/Respiratory: Clear, bilateral breaths sounds. Cardiovascular/Chest: Regular rate and rhythm. Peripheral Pulses: 2+ Radial (R). 2+ Radial (L). 2+ Pedal (R). 2+ Pedal (L) Abdominal Exam: Normal bowel sounds. Ankle Exam: Negative ankle edema Lower extremities: Negative lower extremity edema Neuro/Mental Status: A/OX4, coherent. Thoughts/Psych: Normal thought pattern. Appropriate mood and affect. Good judgment and insight. Appearance: No acute distress. Skin Exam: Normal inspection. Normal color. Warm and dry. Labs/Diagnostic Data Labs Test 10/08/24 13:11 10/08/24 12:13 Range/Units White Blood Count 3.4 L 4.4-10.8 10^3/uL Red Blood Count 4.10 4.0-5.20 10^6/uL Hemoglobin 12.6 12.2-16.2 g/dL Hematocrit 38.3 36.0-46.0 % Mean Corpuscular Volume 93.5 80.0-100.0 fL Mean Corpuscular Hemoglobin 30.9 28.0-32.0 pg Mean Corpuscular Hemoglobin Concent 33.0 32.0-36.0 g/dL Red Cell Distribution Width 13.8 11.8-14.3 % Platelet Count 142 140-450 10^3/uL Mean Platelet Volume 7.9 6.9-10.8 fL Neutrophils (%) (Auto) 59.5 37.0-80.0 % Lymphocytes (%) (Auto) 26.7 10.0-50.0 % Monocytes (%) (Auto) 7.0 0.0-12.0 % Eosinophils (%) (Auto) 5.6 0.0-7.0 % Basophils (%) (Auto) 1.2 0.0-2.0 % Neutrophils # (Auto) 2.1 1.6-8.6 10 ^3/uL Lymphocytes # (Auto) 0.9 0.4-5.4 10 ^3/uL Monocytes # (Auto) 0.2 0-1.3 10 ^3/uL Eosinophils # (Auto) 0.2 0-0.8 10 ^3/uL Basophils # (Auto) 0 0-0.2 10 ^3/uL Nucleated Red Blood Cells 0.1 % Sodium Level 141 136-145 mmol/L Potassium Level 4.7 3.5-5.1 mmol/L Chloride Level 108 H 98-107 mmol/L Carbon Dioxide Level 28 20-31 mmol/L Anion Gap 5 5-15 Blood Urea Nitrogen 12 9-23 mg/dL Creatinine 1.03 H 0.550-1.02 mg/dL Glomerular Filtration Rate Calc 61 >90 mL/min BUN/Creatinine Ratio 11.7 10.0-20.0 Serum Glucose 94 74-106 mg/dL Calcium Level 10.1 8.7-10.4 mg/dL Magnesium Level 1.8 1.6-2.6 mg/dL Total Bilirubin 0.5 0.2-1.0 mg/dL Aspartate Amino Transferase (AST) 18 13-40 U/L Alanine Aminotransferase (ALT) 21 7-40 U/L Alkaline Phosphatase 82 46-116 U/L Total Protein 6.9 5.7-8.2 g/dL Albumin 4.4 3.2-4.8 g/dL Assessment Sinus bradycardia Chest pain, noncardiac Hypertension Dyslipidemia Thyroid disease Obesity Plan/Recommendation We will continue with the following plan/recommendations (Dr. Samson): Case reviewed with . We will proceed with obtaining a transthoracic echocardiogram to evaluate cardiac function. At the time of assessment, the patient is in sinus bradycardia without any pauses or significant atrioventricular blocks. We will recommend to hold off on any AV fernando blocking agents. The patient was noted to have one event of a tachy-davion rhythm on desk monitor. At this time, there is no indication for a temporary venous pacemaker. Continue with close Cardiac surveillance. Given the patient's clinical presentation, unremarkable twelve lead electrocardiogram, and negative troponin level, doubt ACS. There is no further inpatient ischemic cardiac workup indicated at this time. Consider outpatient stress test. Thank you for allowing us to care for this patient. Please call with any questions or concerns. Critical care time spent: 43 minutes This medical document was created using an electronic medical record system with voice recognition software and computerized dictation system. Although this document has been carefully reviewed, there might still be some phonetic and typographical errors. Occasional wrong-word or ``sound-alike substitutions may have occurred due to the inherent limitations of voice recognition software. These areas are purely typographical due to imperfections of the software programs and do not reflect any compromise in the patient's medical care. Please read the chart carefully and recognize, using context, where these substitutions have occurred. Plan discussed with: Patient NYHA Physical activity limitations: NA Date of Service: Oct 08, 2024 Billing Provider: GILES BOB Cardiology Common Codes: 99342-HETUJKF INP/OBS CARE (High) Cardiology Consultation Codes: [id number] CONSULT <45MIN TATE SAMSON DO 10/08/242139: Family History: FH: cancer G8 MOTHER G8 FATHER Allergies: Coded Allergies: NO KNOWN ALLERGIES (Unverified , 01/31/24) Home Meds Active Scripts Promethazine-Dm (Promethazine Dm 6.25-15 mg/5Ml) 1 Jessica Jessica, 10 JESSICA PO TID PRN, #200 ML Prov:JOSE LUIS JUAREZ 03/17/24 Ibuprofen Micronized (Ibuprofen) 800 Mg Tab, 800 MG PO TID PRN, #30 TAB Prov:ANNJOSE LUIS 03/17/24 Reported Medications Atorvastatin Calcium (ATORVASTATIN CALCIUM) 10 Mg Tab, 1 TAB PO DAILY for high cholesterol 04/01/23 Alendronate Sodium (Alendronate Sodium) 70 Mg Tab, 1 TAB PO QWEEKLY for osteoporosis 04/01/23 Lisinopril (Lisinopril) 10 Mg Tab, 1 TAB PO DAILY for htn 04/01/23 Levothyroxine Sodium (Levothyroxine Sodium) 75 Mcg Tab, 1 TAB PO DAILY for low thyroid 04/01/23 Plan/Recommendation Patient encounter was reviewed and discussed with Giles Bob NP. All history, meds, vitals, labs, and imaging were reviewed with her. I agree with her A/P which was formulated with me. Date of Service: Oct 08, 2024 Billing Provider: TATE SAMSON DO Cardiology Common Codes: 68933-[id number] INP/OBS CARE (High) GILES BOB Oct 08, 2024 14:06 TATE SAMSON DO Oct 08, 2024 21:40
[2024-10-08] MEDS ORDERED: MORPHINE SULFATE INJ 2 MG/ml SYRG IV PRN (15:45)
[2024-10-08] MEDS ORDERED: hydrALAZINE HCL 20 MG/ML VL IV PRN (15:45)
[2024-10-08] MEDS ORDERED: NITROGLYCERIN 0.4 MG SL TAB SL PRN (15:45)
--- NOTE | 2024-10-08 15:51 | DVHHP2 ---
History of Present Illness Reason for Visit: Decreased heart rate History of Present Illness The patient was a 64-year-old female refer to the emergency room from her primary care provider's office after being found with bradycardia. Apparently, the patient has been diagnose with low heart rate in the past, and is currently in the process of having breast cancer surgery, but reports that this has been delayed secondary to her low heart rate. While in the emergency room the patient was noted to have some left chest discomfort. Echocardiogram has been performed, currently pending. Troponins have been decreased. Significant history of the patient includes hypertension, hypothyroidism, and dyslipidemia in addition to breast cancer. Cardiovascular: HTN, hyperipidemia Endocrine: Hypothyroidism Past Surgical History: None Family History: None Smoke: No ALCOHOL: none Drugs: None Lives: with Family Review of Systems Constitutional: No: Fever, Chills, Sweats, Weakness, Malaise, Other Eyes: No: Pain, Vision change, Conjunctivae inflammation, Eyelid inflammation, Other, Redness ENT: No: Ear pain, Ear discharge, Nose pain, Nose discharge, Nose congestion, Mouth pain, Mouth swelling, Throat pain, Throat swelling, Other Respiratory: No: Cough, Dry, Shortness of breath, SOB with excertion, Wheezing, Hemoptysis, Pleuritic Pain, Sputum, Wheezing, Other Cardiovascular: Chest Pain Gastrointestinal: No: Nausea, Vomiting, Abdominal Pain, Diarrhea, Constipation, Melena, Hematochezia, Other Genitourinary: No Dysuria, No Frequency, No Incontinence, No Hematuria, No Retention, No Other Musculoskeletal: No: other, neck pain, shoulder pain, arm pain, back pain, hand pain, leg pain, foot pain Skin: No: Rash, Lesions, Jaundice, Bruising, Other Neurological: No: Weakness, Numbness, Incoordination, Change in speech, Confusion, Seizures, Other Allergies: Coded Allergies: NO KNOWN ALLERGIES (Unverified , 01/31/24) Exam Vital Signs Vital Signs Date Time Temp Pulse Resp B/P (MAP) Pulse Ox O2 Delivery O2 Flow Rate FiO2 10/08/24 14:34 52 10/08/24 13:00 110/41 10/08/24 12:48 13 95 10/08/24 12:00 97.6 General Appearance: Alert, Oriented X3, Cooperative, No acute distress HEENT: Atraumatic, PERRLA Respiratory: Clear to auscultation, Normal air movement Cardiovascular: Normal S2, Other (Sinus bradycardia) Abdominal: Normal bowel sounds, Soft, No tenderness, No hepatospenomegaly, No masses Extremities: No clubbing, No cyanosis, No edema, No tenderness/swelling Neuro: Normal gait, Normal speech Psych/Mental Status: Mental status NL, Mood NL Labs/Xrays Labs Test 10/08/24 13:11 10/08/24 12:13 Range/Units Troponin I High Sensitivity 11 </=34 ng/L Thyroid Stimulating Hormone (TSH) 1.71 0.55-4.78 uIU/mL White Blood Count 3.4 L 4.4-10.8 10^3/uL Red Blood Count 4.10 4.0-5.20 10^6/uL Hemoglobin 12.6 12.2-16.2 g/dL Hematocrit 38.3 36.0-46.0 % Mean Corpuscular Volume 93.5 80.0-100.0 fL Mean Corpuscular Hemoglobin 30.9 28.0-32.0 pg Mean Corpuscular Hemoglobin Concent 33.0 32.0-36.0 g/dL Red Cell Distribution Width 13.8 11.8-14.3 % Platelet Count 142 140-450 10^3/uL Mean Platelet Volume 7.9 6.9-10.8 fL Neutrophils (%) (Auto) 59.5 37.0-80.0 % Lymphocytes (%) (Auto) 26.7 10.0-50.0 % Monocytes (%) (Auto) 7.0 0.0-12.0 % Eosinophils (%) (Auto) 5.6 0.0-7.0 % Basophils (%) (Auto) 1.2 0.0-2.0 % Neutrophils # (Auto) 2.1 1.6-8.6 10 ^3/uL Lymphocytes # (Auto) 0.9 0.4-5.4 10 ^3/uL Monocytes # (Auto) 0.2 0-1.3 10 ^3/uL Eosinophils # (Auto) 0.2 0-0.8 10 ^3/uL Basophils # (Auto) 0 0-0.2 10 ^3/uL Nucleated Red Blood Cells 0.1 % Sodium Level 141 136-145 mmol/L Potassium Level 4.7 3.5-5.1 mmol/L Chloride Level 108 H 98-107 mmol/L Carbon Dioxide Level 28 20-31 mmol/L Anion Gap 5 5-15 Blood Urea Nitrogen 12 9-23 mg/dL Creatinine 1.03 H 0.550-1.02 mg/dL Glomerular Filtration Rate Calc 61 >90 mL/min BUN/Creatinine Ratio 11.7 10.0-20.0 Serum Glucose 94 74-106 mg/dL Calcium Level 10.1 8.7-10.4 mg/dL Magnesium Level 1.8 1.6-2.6 mg/dL Total Bilirubin 0.5 0.2-1.0 mg/dL Aspartate Amino Transferase (AST) 18 13-40 U/L Alanine Aminotransferase (ALT) 21 7-40 U/L Alkaline Phosphatase 82 46-116 U/L Total Protein 6.9 5.7-8.2 g/dL Albumin 4.4 3.2-4.8 g/dL Assessment/Plan Assessment/Plan Impression: -symptomatic bradycardia -primary hypertension -hypothyroidism -dyslipidemia -obesity -breast cancer Plan: -continue antihypertensives, statins. Patient without any beta jose manuel calcium channel jose manuel therapy -continue thyroid supplementation -echocardiogram: Pending -cardiology consultation: recommendations reviewed -check ESR, CRP -given echocardiogram results, may consider CT scan of the chest Total time spent with patient discussing and formulating plan of care: 35 minutes. This medical document was created using an electronic medical record system with [employer] dictation system. Although this document has been carefully reviewed, there may still be some phonetic and typographical errors. These areas are purely typographical due to imperfections of the software programs, and do not reflect any compromise in the patient's medical care. Plan discussed with: Patient, Other (RN) Date of Service: Oct 08, 2024 Billing Provider: BROOKLYN COLEY NP Common Visit Codes: [id number] INP/OBS CARE (HIGH) BROOKLYN COLEY NP Oct 08, 2024 15:51
[2024-10-08 16:49] LABS: Erythrocyte Sedimentation Rate 30 mm/hr (0-20)
[2024-10-08 18:16] LABS: Urine Bacteria FEW /hpf (None Seen); Urine Blood TRACE /uL (Negative); Urine Clarity Turbid (Clear); Urine Color Colorless (Yellow); Urine Protein, UAD Negative (Negative); Urine Specific Gravity 1.006 (1.001-1.035); Urine Squamous Epithelial Cell FEW /hpf (<5); Urine Urobilinogen Normal (Negative); Urine WBC 44 /HPF (0-5); Urine pH 6.5 (5.0-9.0)
[2024-10-08 21:00] VITALS: BP 96/50; PULSE 42; RESP 17; TEMP 97.9; O2SAT 96
--- NOTE | 2024-10-08 21:08 | DVHSR ---
APPROVED REPORT EXAM: Two-dimensional and M-mode echocardiogram with Doppler and color Doppler. Blood Pressure: 110/41 mmHg INDICATION Eval for cardiac function RISK FACTORS Height: 61, Weight: 160 DIMENSIONS LVDd (3.8-5.7cm)LA (2D)4.5 (1.9-4.0cm)Aortic Root3.2 (2.0-3.7cm) LVDs (2.5-4.0cm)LA (MM) (1.9-4.0cm)Aortic Cusp Exc1.5 (1.5-2.0cm) EF (%) 65.0 (55-70%)Rt. Atrium4.3 (1.9-4.0cm)Asc. Aorta cm Mitral Valve MitralMitral Stenosis E wave0.77m/sMV Mean GR.mmHg A wave0.74m/sMV Peak GR.117mmHg E/A ratio1.02D MVAcm2 DECEL [id number] 1/2 [id number] IVRTmsDop MVA2.08cm2 Aortic Valve Aortic ValveAortic Stenosis V11.61m/Tesfaye Mean GR.8mmHg V22.15m/Tesfaye Peak GR.19mmHg LVOT Diameter2.1 (1.8-2.4cm)Doppler AVA2.59cm2 Pulmonic Valve V21.09m/s Tricuspid Valve TR Velocity2.99m/s [id number] Conclusion Normal biventricular size and systolic function. LVEF 60-65%. Normal wall motion. Probably grade 1 di astolic dysfunction. Mild biatrial enlargement. Trileaflet aortic valve with mild sclerosis. No . Trace AI. Mild MAC. Trace MR. Mild TR. RVSP estimated at 43 mmHg based on an RAP of 3 mmHg. Normal IVC. No significant pericardial effusion. Sinus bradycardia with PVCs.
[2024-10-08 22:03] VITALS: BP 148/70; PULSE 73; RESP 17; TEMP 98; O2SAT 93
[2024-10-08 22:05] VITALS: BP 96/50; PULSE 42; RESP 17; TEMP 97.9; O2SAT 96
[2024-10-08 22:06] VITALS: BP 96/50; PULSE 42; RESP 17; TEMP 97.9; O2SAT 96
[2024-10-09] VITALS (11 sets, daily range): BP systolic 106–139; BP diastolic 42–68; PULSE 36–49; RESP 16–18; TEMP 97.5–98; O2SAT 94–100
[2024-10-09] MEDS: LEVOTHYROXINE SODIUM 25 MCG TAB PO SCH (07:05)
[2024-10-09] MEDS: LEVOTHYROXINE SODIUM 50 MCG TAB PO SCH (07:05)
--- NOTE | 2024-10-09 08:47 | ECG ---
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
--- NOTE | 2024-10-09 08:47 | ECG ---
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
[2024-10-09] MEDS: LISINOPRIL 5 MG TAB PO SCH (09:24)
[2024-10-09] MEDS ORDERED: PATIENTS OWN MEDICATION (Levothyroxine Sodium 1 TAB) PO SCH (10:00)
[2024-10-09] MEDS ORDERED: PATIENTS OWN MEDICATION (Lisinopril 1 TAB) PO SCH (10:00)
--- NOTE | 2024-10-09 11:17 | DVHPN2 ---
Consult Progress Note Subjective Other Systems: Sinus bradycardia on electronic device monitor Objective vital signs Vital Sign Date Time Temp Pulse Resp B/P (MAP) Pulse Ox O2 Delivery O2 Flow Rate FiO2 10/09/24 09:24 114/62 10/09/24 09:03 97.7 47 18 95 97.7 10/09/24 08:00 Room Air* 0 21 Total Intake and Output 10/08/24 10/08/24 10/09/24 15:00 23:00 07:00 Intake Total 100 ml Balance 100 ml medications Current Medications Medications Dose Ordered Sig/Linda Route Start Time Stop Time Status Last Admin Dose Admin Nitroglycerin 0.4 mg Q5MINP PRN SL 10/08/24 15:45 Morphine Sulfate 2 mg Q30M PRN IV 10/08/24 15:45 Hydralazine HCl 10 mg Q6HP PRN IV 10/08/24 15:45 Patient Own Medication 1 tab DAILY PO 10/09/24 10:00 UNV Patient Own Medication 1 tab DAILY PO 10/09/24 10:00 UNV Lisinopril 10 mg DAILY PO 10/09/24 10:00 10/09/24 09:24 10 MG Levothyroxine Sodium 25 mcg QAM PO 10/09/24 07:00 10/09/24 07:05 25 MCG Levothyroxine Sodium 50 mcg QAM PO 10/09/24 07:00 10/09/24 07:05 50 MCG Examination: GENERAL:Normal, LUNGS:Normal, CVS:Normal (Sinus bradycardia without pauses or AV blocks), NEURO:Normal laboratory and microbiology Laboratory Tests 10/08/24 12:13 Test 10/08/24 12:13 Range/Units Serum Glucose 94 74-106 mg/dL Problem List/Assessment/Plan Problem List/Assessment/Plan Symptomatic bradycardia Hypertension Dyslipidemia Thyroid disease Breast cancer Obesity Plan/Recommendation We will continue with the following plan/recommendations (Dr. Kuhn): Case reviewed with . Transthoracic echocardiogram reveals EF 60-65% with normal wall motion. At the time of assessment, the patient is in sinus bradycardia without any pauses or significant atrioventricular blocks. Patient denies any symptoms of bradycardia at the time of assessment, but mentions previous episodes of lightheadedness and dizziness. We will recommend to hold off on any AV fernando blocking agents. The patient was noted to have a few events of a tachy-davion rhythm on electronic device monitor. The patient was offered permanent pacemaker implantation given that she has experienced symptomatic bradycardia and after reviewing electronic device monitor. At this time, the patient states that she would like to speak to her family members prior to making a final decision. We will respect patient's wishes and allow her time to consider procedure. Continue with close Cardiac surveillance. Thank you for allowing us to care for this patient. Please call with any questions or concerns. This medical document was created using an electronic medical record system with voice recognition software and computerized dictation system. Although this document has been carefully reviewed, there might still be some phonetic and typographical errors. Occasional wrong-word or ``sound-alike substitutions may have occurred due to the inherent limitations of voice recognition software. These areas are purely typographical due to imperfections of the software programs and do not reflect any compromise in the patient's medical care. Please read the chart carefully and recognize, using context, where these substitutions have occurred. Plan discussed with: Patient Date of Service: Oct 09, 2024 Billing Provider: GILES FLETCHER Common Visit Codes: [id number] INP/OBS CARE(HIGH) GLIES FLETCHER Oct 09, 2024 11:17
--- NOTE | 2024-10-09 12:38 | ECG ---
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
--- NOTE | 2024-10-09 15:20 | DVHPN2 ---
Subjective Patient denies any symptoms. Reviewed: Care Plan, H&P, Labs, Medications Changes from previous H/P or p: No Changes General: Per HPI Eyes: No Pain, No Vision change, No Conjunctivae inflammation, No Eyelid inflammation, No Other, No Redness ENT: No Ear pain, No Ear discharge, No Nose pain, No Nose discharge, No Nose congestion, No Mouth pain, No Mouth swelling, No Throat pain, No Throat swelling, No Other Cardiovascular: Chest Pain Respiratory: No Cough, No Dry, No Shortness of breath, No SOB with excertion, No Wheezing, No Hemoptysis, No Pleuritic Pain, No Sputum, No Other Gastrointestinal: No Nausea, No Vomiting, No Abdominal Pain, No Diarrhea, No Constipation, No Melena, No Hematochezia, No Other Genitourinary: No Dysuria, No Frequency, No Incontinence, No Hematuria, No Retention, No Other Musculoskeletal: No other, No neck pain, No shoulder pain, No arm pain, No back pain, No hand pain, No leg pain, No foot pain Skin: No Rash, No Lesions, No Jaundice, No Bruising, No Other Objective Vitals Vital Signs Date Time Temp Pulse Resp B/P (MAP) Pulse Ox O2 Delivery O2 Flow Rate FiO2 10/09/24 13:14 97.8 48 16 106/49 (68) 96 97.8 10/09/24 08:00 Room Air* 0 21 Intake/Output Intake and Output 10/09/24 07:00 Intake Total 100 ml Balance 100 ml Intake Oral 100 ml # Voids 2 General Appearance: Alert, Oriented X3, Cooperative, No acute distress HEENT: Atraumatic, PERRLA Lungs: Clear to auscultation, Normal air movement Cardiovascular: Normal S1, Normal S2 Abdomen: Normal bowel sounds, Soft, No tenderness, No hepatospenomegaly, No masses Musculoskeletal: Normal sensory function, Normal motor function Neuro: Normal gait, Normal speech Psych/Mental Status: Mental status NL, Mood NL Medications Current Medications Medications Dose Ordered Sig/Linda Route Start Time Stop Time Status Last Admin Dose Admin Nitroglycerin 0.4 mg Q5MINP PRN SL 10/08/24 15:45 Morphine Sulfate 2 mg Q30M PRN IV 10/08/24 15:45 Hydralazine HCl 10 mg Q6HP PRN IV 10/08/24 15:45 Patient Own Medication 1 tab DAILY PO 10/09/24 10:00 UNV Patient Own Medication 1 tab DAILY PO 10/09/24 10:00 UNV Lisinopril 10 mg DAILY PO 10/09/24 10:00 10/09/24 09:24 10 MG Levothyroxine Sodium 25 mcg QAM PO 10/09/24 07:00 10/09/24 07:05 25 MCG Levothyroxine Sodium 50 mcg QAM PO 10/09/24 07:00 10/09/24 07:05 50 MCG Laboratory Results Laboratory Tests 10/08/24 12:13 Urinalysis Test 10/08/24 14:20 Urine Color Colorless (Yellow) Urine Clarity Turbid (Clear) H Urine pH 6.5 (5.0-9.0) Urine Specific [place] 1.006 (1.001-1.035) Urine Protein Negative (Negative) Urine Ketones Negative (Negative) Urine Blood Trace /uL (Negative) H Urine Nitrite 1+ (Negative) H Urine Bilirubin Negative (Negative) Urine Urobilinogen Normal mg/dL (Negative) Urine Leukocyte Esterase 3+ /uL (Negative) Urine RBC 3 /hpf (0 - 4) Urine Microscopic WBC 44 /HPF (0-5) H Urine Squamous Epithelial Cells Few /hpf (<5) Urine Bacteria Few /hpf (None Seen) H Urine Glucose Normal mg/dL (Normal) Labs and/or images reviewed: Labs reviewed by me, Image(s) reviewed by me Assessment/Plan Assessment/Plan Impression: -symptomatic bradycardia -primary hypertension -hypothyroidism -dyslipidemia -obesity -breast cancer Plan: -discussed case with Cardiology. Plans for Permanent pacemaker implant. -continue antihypertensives, statins. Patient without any beta jose manuel calcium channel jose manuel therapy -continue thyroid supplementation -echocardiogram: Results reviewed -cardiology consultation: recommendations reviewed -repeat labs in a.m. Total time spent with patient discussing and formulating plan of care: 35 minutes. This medical document was created using an electronic medical record system with [employer] system. Although this document has been carefully reviewed, there may still be some phonetic and typographical errors. These areas are purely typographical due to imperfections of the software programs, and do not reflect any compromise in the patient's medical care. Plan discussed with: Patient, Other (RN) My Orders Orders - BROOKLYN COLEY BUSINESS MACHINE MECHANIC Procedure Category Date Status Time Admit ADMIT 10/08/24 Transmitted 15:42 Nitroglycerin PHA 10/08/24 In Process Sublingual (Ntrostat 15:45 Morphine Sulfate PHA 10/08/24 In Process Injection 15:45 Stat Ekg For Chest BRATOLO 10/08/24 In Process Pain 15:42 Notify Of Changes [facility] 10/08/24 In Process From Base 15:42 Senior Software Developer For [facility] 10/08/24 In Process 24 Hours 15:42 Emergency Dysrhythmia [facility] 10/08/24 In Process Protocol 15:42 Rhythm Strips Once [facility] 10/08/24 In Process Every Shift 15:42 Oxygen By Nasal RT 10/08/24 Transmitted Cannula 15:42 Cardiac DIET 10/08/24 Transmitted Diet-2gna,Lofat,Lochol Dinner Hydralazine Injection PHA 10/08/24 In Process (Apresoline Inject 15:45 Lisinopril Tablet PHA 10/09/24 In Process (Zestril Tablet) 10:00 Levothyroxine Tablet PHA 10/09/24 In Process (Synthroid Tablet) 07:00 Levothyroxine Tablet PHA 10/09/24 In Process (Synthroid Tablet) 07:00 PTPTT LAB 10/10/24 Verified 04:00 Basic Metabolic Panel LAB 10/10/24 Verified 04:00 Date of Service: Oct 09, 2024 Billing Provider: BROOKLYN COLEY NP Common Visit Codes: [id number] INP/OBS CARE(HIGH) BROOKLYN COLEY NP Oct 09, 2024 15:20
--- NOTE | 2024-10-09 18:41 | DVHINCON2 ---
Date of service: Oct 09, 2024 Referring Physician Hattie Reason for Consultation chest pain, bradycardia History of Present Illness This is a 64-year-old female with a PMH of hypertension, dyslipidemia, thyroid disease, kidney stones, and osteoporosis who was referred to the ED by primary care physician on 10/09 due to bradycardia. The patient reports that she was originally at her primary care physician's office (Dr. Canales) and was told that her heart rate was low and that she needed to come to the emergency department. Patient mentioned that she has been having chest pain for approximately three weeks duration. She describes it as unprovoked, intermittent, a "pinching" sensa tion, and left-sided without any radiation. Initial twelve lead electrocardiogram reveals sinus bradycardia heart rate in low 40s. Troponin is negative. The patient reports she was also recently diagnosed with breast cancer in June 2024. She has not had any kind of treatment as they are planning for a mastectomy, but have told her that she would need to be evaluated by Cardiolo gy first. Patient reports that she sees a convertible top installer, , in the outpatient setting. I am asked to consult on this patient. Family History: FH: cancer G8 MOTHER G8 FATHER Allergies: Coded Allergies: NO KNOWN ALLERGIES (Unverified , 01/31/24) Home Meds Active Scripts Promethazine-Dm (Promethazine Dm 6.25-15 mg/5Ml) 1 Jessica Jessica, 10 JESSICA PO TID PRN, #200 ML Prov:JOSE LUIS JUAREZP 03/17/24 Ibuprofen Micronized (Ibuprofen) 800 Mg Tab, 800 MG PO TID PRN, #30 TAB Prov:JOSE LUIS JUAREZ 03/17/24 Reported Medications Atorvastatin Calcium (ATORVASTATIN CALCIUM) 10 Mg Tab, 1 TAB PO DAILY for high cholesterol 04/01/23 Alendronate Sodium (Alendronate Sodium) 70 Mg Tab, 1 TAB PO QWEEKLY for osteoporosis 04/01/23 Lisinopril (Lisinopril) 10 Mg Tab, 1 TAB PO DAILY for htn 04/01/23 Levothyroxine Sodium (Levothyroxine Sodium) 75 Mcg Tab, 1 TAB PO DAILY for low thyroid 04/01/23 Current Medications Current Medications Medications (Trade) Dose Ordered Sig/Linda Route PRN Reason Start Time Stop Time Status Last Admin Patient Own Medication 1 tab DAILY PO 10/09/24 10:00 UNV Patient Own Medication 1 tab DAILY PO 10/09/24 10:00 UNV Lisinopril (Zestril Tablet) 10 mg DAILY PO 10/09/24 10:00 10/09/24 09:24 Levothyroxine Sodium (Synthroid Tablet) 25 mcg QAM PO 10/09/24 07:00 10/09/24 15:18 DC 10/09/24 07:05 Levothyroxine Sodium (Synthroid Tablet) 50 mcg QAM PO 10/09/24 07:00 10/09/24 15:18 DC 10/09/24 07:05 Review of Systems Constitutional: denies: chills, diaphoresis, fatigue, fever, malaise, sweats, weakness, others EENTM: denies: blurred vision, double vision, ear bleeding, ear discharge, ear drainage, ear pain, ear ringing, eye pain, eye redness, hearing loss, mouth pain, mouth swelling, nasal discharge, nose bleeding, nose congestion, nose pain, photophobia, tearing, throat pain, throat swelling, voice changes, others Respiratory: denies: cough, hemoptysis, orthopnea, SOB at rest, shortness of breath, SOB with excertion, stridor, wheezing, others Cardiovascular: denies: chest pain, dizzy spells, diaphoresis, Dyspnea on exertion, edema, irregular heart beat, left arm pain, lightheadedness, palpitations, PND, syncope, others Gastrointestinal: denies: abdomen distended, abdominal pain, blood streaked bowels, constipated, diarrhea, dysphagia, difficulty swallowing, hematemesis, melena, nausea, poor appetite, poor fluid intake, rectal bleeding, rectal pain, vomiting, others Genitourinary: denies: abnormal vagina bleeding, burning, dyspareunia, dysuria, flank pain, frequency, hematuria, incontinence, pain, , vagina discharge, urgency, others Neurological: denies: dizziness, fainting, headache, left sided numbness, left sided weakness, numbness, paresthesia, pre-existing deficit, right sided numb ness, right sided weakness, seizure, speech problems, tingling, tremors, weakness, others Musculoskeletal: denies: back pain, gout, joint pain, joint swelling, muscle pain, muscle stiffness, neck pain, others Integumetry: denies: bruises, change in color, change in hair/nails, dryness, laceration, lesions, lumps, rash, wounds, others Allergic/Immunocompromised: denies: Difficulty Healing, Frequent Infections, Hives, Itching, others Hematologic/Lymphatic: denies: anemia, blood clots, easy bleeding, easy bruising, swollen glands, others Endocrine: denies: excessive hunger, excessive sweating, excessive thirst, excessive urination, flushing, intolerance to cold, intolerance to heat, unexplained weight gain, unexplained weight loss, others Psychiatric: denies: anxiety, bipolar disorder, depression, hopeless, panic disorder, schizophrenia, sleepless, suicidal, others All Other Systems: Reviewed and Negative Vital Signs Vital Signs Date Time Temp Pulse Resp B/P (MAP) Pulse Ox O2 Delivery O2 Flow Rate FiO2 10/09/24 16:33 97.8 40 16 109/42 (64) 100 97.8 10/09/24 08:00 Room Air* 0 21 Physical Exam GENERAL: Awake, alert, oriented. LUNGS: Clear. CARDIOVASCULAR: Sinus bradycardia. ABDOMEN: Soft. Labs/Diagnostic Data Labs Test 10/08/24 14:20 10/08/24 13:11 10/08/24 12:13 Range/Units Urine Color Colorless Yellow Urine Clarity Turbid H Clear Urine pH 6.5 5.0-9.0 Urine Specific [place] 1.006 1.001-1.035 Urine Protein Negative Negative Urine Ketones Negative Negative Urine Blood Trace H Negative /uL Urine Nitrite 1+ H Negative Urine Bilirubin Negative Negative Urine Urobilinogen Normal Negative mg/dL Urine Leukocyte Esterase 3+ Negative /uL Urine RBC 3 0 - 4 /hpf Urine Microscopic WBC 44 H 0-5 /HPF Urine Squamous Epithelial Cells Few <5 /hpf Urine Bacteria Few H None Seen /hpf Urine Glucose Normal Normal mg/dL Troponin I High Sensitivity 11 </=34 ng/L Thyroid Stimulating Hormone (TSH) 1.71 0.55-4.78 uIU/mL White Blood Count 3.4 L 4.4-10.8 10^3/uL Red Blood Count 4.10 4.0-5.20 10^6/uL Hemoglobin 12.6 12.2-16.2 g/dL Hematocrit 38.3 36.0-46.0 % Mean Corpuscular Volume 93.5 80.0-100.0 fL Mean Corpuscular Hemoglobin 30.9 28.0-32.0 pg Mean Corpuscular Hemoglobin Concent 33.0 32.0-36.0 g/dL Red Cell Distribution Width 13.8 11.8-14.3 % Platelet Count 142 140-450 10^3/uL Mean Platelet Volume 7.9 6.9-10.8 fL Neutrophils (%) (Auto) 59.5 37.0-80.0 % Lymphocytes (%) (Auto) 26.7 10.0-50.0 % Monocytes (%) (Auto) 7.0 0.0-12.0 % Eosinophils (%) (Auto) 5.6 0.0-7.0 % Basophils (%) (Auto) 1.2 0.0-2.0 % Neutrophils # (Auto) 2.1 1.6-8.6 10 ^3/uL Lymphocytes # (Auto) 0.9 0.4-5.4 10 ^3/uL Monocytes # (Auto) 0.2 0-1.3 10 ^3/uL Eosinophils # (Auto) 0.2 0-0.8 10 ^3/uL Basophils # (Auto) 0 0-0.2 10 ^3/uL Nucleated Red Blood Cells 0.1 % Erythrocyte Sedimentation Rate 30 H 0-20 mm/hr Sodium Level 141 136-145 mmol/L Potassium Level 4.7 3.5-5.1 mmol/L Chloride Level 108 H 98-107 mmol/L Carbon Dioxide Level 28 20-31 mmol/L Anion Gap 5 5-15 Blood Urea Nitrogen 12 9-23 mg/dL Creatinine 1.03 H 0.550-1.02 mg/dL Glomerular Filtration Rate Calc 61 >90 mL/min BUN/Creatinine Ratio 11.7 10.0-20.0 Serum Glucose 94 74-106 mg/dL Calcium Level 10.1 8.7-10.4 mg/dL Magnesium Level 1.8 1.6-2.6 mg/dL Total Bilirubin 0.5 0.2-1.0 mg/dL Aspartate Amino Transferase (AST) 18 13-40 U/L Alanine Aminotransferase (ALT) 21 7-40 U/L Alkaline Phosphatase 82 46-116 U/L C-Reactive Protein High Sensitivity 0.20 <1.0 mg/dL Total Protein 6.9 5.7-8.2 g/dL Albumin 4.4 3.2-4.8 g/dL Assessment Symptomatic bradycardia. Hypertension. Dyslipidemia. Thyroid disease. Breast cancer. Obesity. Plan/Recommendation I agree with your ongoing assessment and care of plan. Permanent pacemaker implantation. Risks and benefits discussed with the patient. Lisinopril. Morphine for pain management. Nitro SL. Additional plan as per the hospital course. A total of 45 minutes was spent reviewing the patient record, examining the patient, making a diagnostic and therapeutic plan, discussing this plan with medical personnel, following up on diagnostic studies and following the patient for clinical stability excluding any and all procedures. At least 50% of this time was spent in direct, [id number] contact. Plan discussed with: Patient ALICIA MARTINEZ MD Oct 09, 2024 18:41
[2024-10-10] VITALS (9 sets, daily range): BP systolic 100–148; BP diastolic 43–83; PULSE 42–73; RESP 15–18; TEMP 97.5–98.2; O2SAT 93–100
[2024-10-10 07:37] LABS: Anion Gap 8 (5-15); Carbon Dioxide 25 mmol/L (20-31); Sodium 141 mmol/L (136-145)
[2024-10-10 07:42] LABS: INR 1.03 (0.9-1.15); Partial Thromboplastin Time 26.7 SEC (24.5-34.5); Prothrombin Time 10.9 sec (9.3-11.8)
[2024-10-10 07:43] LABS: Blood Urea Nitrogen 16 mg/dL (9-23); Glucose 93 mg/dL (74-106)
[2024-10-10 07:45] LABS: Chloride 108 mmol/L (98-107)
--- NOTE | 2024-10-10 14:33 | DVHPN2 ---
Progress Note Date Seen: Oct 10, 2024 Medical Necessity Reason Pt with a Central, PICC or Fol: No Subjective Patient reports: Feels better Other Systems: pt een with RN Objective vital signs Vital Sign Date Time Temp Pulse Resp B/P (MAP) Pulse Ox O2 Delivery O2 Flow Rate FiO2 10/10/24 12:39 98.0 45 15 107/47 (67) 97 98.0 10/10/24 08:05 Room Air* 0 21 Total Intake and Output 10/09/24 10/09/24 10/10/24 15:00 23:00 07:00 Intake Total 1280 ml 420 ml Output Total 1002 ml Balance 278 ml 420 ml medications Current Medications Medications Dose Ordered Sig/Linda Route Start Time Stop Time Status Last Admin Dose Admin Nitroglycerin 0.4 mg Q5MINP PRN SL 10/08/24 15:45 Morphine Sulfate 2 mg Q30M PRN IV 10/08/24 15:45 Hydralazine HCl 10 mg Q6HP PRN IV 10/08/24 15:45 Patient Own Medication 1 tab DAILY PO 10/09/24 10:00 UNV Patient Own Medication 1 tab DAILY PO 10/09/24 10:00 UNV Lisinopril 10 mg DAILY PO 10/09/24 10:00 10/10/24 10:27 10 MG Examination: GENERAL:Abnormal, HEENT:Abnormal, LUNGS:Abnormal, CVS:Abnormal, ABDOMEN:Abnormal laboratory and microbiology Laboratory Tests 10/10/24 06:17 10/08/24 12:13 Test 10/10/24 06:17 Range/Units Serum Glucose 93 74-106 mg/dL Problem List/Assessment/Plan Problem List/Assessment/Plan bradycardia chest pain htn obesity breast cancer had long talk [facility] pt and RN swedish speaking, offered ppm given 2 episodes of davion going to ER in past 1 year, chronic low HR, pt tells me her cancer team is worried about her low HR not on any avn agents pt agrees to ppm at this time 2/2 to sick sinus syndrome she agrees Plan discussed with: Patient My Orders My Orders Orders - BRADFORD LYNCH MD Procedure Category Date Status Time * Cardiology Consult CONS 10/09/24 Transmitted 14:34 Date of Service: Oct 10, 2024 Billing Provider: BRADFORD LYNCH MD Common Visit Codes: NOT BILLABLE BRADFORD LYNCH MD Oct 10, 2024 14:33
--- NOTE | 2024-10-10 20:04 | DVHPN2 ---
Progress Note - Dictate Date Seen: Oct 10, 2024 Medical Necessity Reason Pt with a Central, PICC or Fol: No Subjective Patient was seen and evaluated in follow up. Patient denies any complaints. Chest pain resolved. Patient has been recommended for PPM insertion due to bradycardia/SSS. Telemetry reviewed. vital signs Vital Sign Date Time Temp Pulse Resp B/P (MAP) Pulse Ox O2 Delivery O2 Flow Rate FiO2 10/10/24 10:27 135/80 10/10/24 08:46 97.9 42 18 100 97.9 10/09/24 19:50 Room Air* 0 21 Total Intake and Output 10/09/24 10/09/24 10/10/24 15:00 23:00 07:00 Intake Total 1280 ml 420 ml Output Total 1002 ml Balance 278 ml 420 ml medications Current Medications Medications Dose Ordered Sig/Linda Route Start Time Stop Time Status Last Admin Dose Admin Nitroglycerin 0.4 mg Q5MINP PRN SL 10/08/24 15:45 Morphine Sulfate 2 mg Q30M PRN IV 10/08/24 15:45 Hydralazine HCl 10 mg Q6HP PRN IV 10/08/24 15:45 Patient Own Medication 1 tab DAILY PO 10/09/24 10:00 UNV Patient Own Medication 1 tab DAILY PO 10/09/24 10:00 UNV Lisinopril 10 mg DAILY PO 10/09/24 10:00 10/10/24 10:27 10 MG objective GENERAL: Awake, alert, oriented. LUNGS: Clear. CARDIOVASCULAR: Sinus bradycardia. ABDOMEN: Soft. laboratory and microbiology Laboratory Tests 10/10/24 06:17 10/08/24 12:13 Test 10/10/24 06:17 Range/Units Serum Glucose 93 74-106 mg/dL Problem List Symptomatic bradycardia. SSS. Hypertension. Dyslipidemia. Thyroid disease. Breast cancer. Obesity. Assessment/Plan Continued all current supportive medical care. Permanent pacemaker implantation. Risks and benefits discussed with the patient. Lisinopril. Morphine for pain management. Nitro SL. Additional plan as per the hospital course. Plan discussed with: Patient ALICIA MARTINEZ MD Oct 10, 2024 12:06
[2024-10-11] VITALS (9 sets, daily range): BP systolic 95–112; BP diastolic 32–55; PULSE 41–52; RESP 16–18; TEMP 97.7–98.2; O2SAT 93–98
--- NOTE | 2024-10-11 09:40 | DVHPN2 ---
Subjective The patient seems him at bedside. No change overnight. Reviewed: Care Plan, H&P, Labs, Medications Changes from previous H/P or p: No Changes General: Per HPI Eyes: No Pain, No Vision change, No Conjunctivae inflammation, No Eyelid inflammation, No Other, No Redness ENT: No Ear pain, No Ear discharge, No Nose pain, No Nose discharge, No Nose congestion, No Mouth pain, No Mouth swelling, No Throat pain, No Throat swelling, No Other Cardiovascular: Chest Pain Respiratory: No Cough, No Dry, No Shortness of breath, No SOB with excertion, No Wheezing, No Hemoptysis, No Pleuritic Pain, No Sputum, No Other Gastrointestinal: No Nausea, No Vomiting, No Abdominal Pain, No Diarrhea, No Constipation, No Melena, No Hematochezia, No Other Genitourinary: No Dysuria, No Frequency, No Incontinence, No Hematuria, No Retention, No Other Musculoskeletal: No other, No neck pain, No shoulder pain, No arm pain, No back pain, No hand pain, No leg pain, No foot pain Skin: No Rash, No Lesions, No Jaundice, No Bruising, No Other Objective Vitals Vital Signs Date Time Temp Pulse Resp B/P (MAP) Pulse Ox O2 Delivery O2 Flow Rate FiO2 10/10/24 09:12 98.2 44 16 112/32 (58) 95 98.2 10/10/24 20:00 Room Air* 0 21 Intake/Output Intake and Output 10/11/24 07:00 Intake Total 2420 ml Output Total 600 ml Balance 1820 ml Intake Oral 2420 ml Output Urine Total 600 ml # Voids 6 # Bowel Movements 2 General Appearance: Alert, Oriented X3, Cooperative, No acute distress HEENT: Atraumatic, PERRLA Lungs: Clear to auscultation, Normal air movement Cardiovascular: Normal S1, Normal S2 Abdomen: Normal bowel sounds, Soft, No tenderness, No hepatospenomegaly, No masses Musculoskeletal: Normal sensory function, Normal motor function Neuro: Normal gait, Normal speech Psych/Mental Status: Mental status NL, Mood NL Medications Current Medications Medications Dose Ordered Sig/Linda Route Start Time Stop Time Status Last Admin Dose Admin Nitroglycerin 0.4 mg Q5MINP PRN SL 10/08/24 15:45 Morphine Sulfate 2 mg Q30M PRN IV 10/08/24 15:45 Hydralazine HCl 10 mg Q6HP PRN IV 10/08/24 15:45 Patient Own Medication 1 tab DAILY PO 10/09/24 10:00 UNV Patient Own Medication 1 tab DAILY PO 10/09/24 10:00 UNV Lisinopril 10 mg DAILY PO 10/09/24 10:00 10/10/24 10:27 10 MG Laboratory Results Laboratory Tests 10/08/24 12:13 10/10/24 06:17 Urinalysis Test 10/08/24 14:20 Urine Color Colorless (Yellow) Urine Clarity Turbid (Clear) H Urine pH 6.5 (5.0-9.0) Urine Specific [place] 1.006 (1.001-1.035) Urine Protein Negative (Negative) Urine Ketones Negative (Negative) Urine Blood Trace /uL (Negative) H Urine Nitrite 1+ (Negative) H Urine Bilirubin Negative (Negative) Urine Urobilinogen Normal mg/dL (Negative) Urine Leukocyte Esterase 3+ /uL (Negative) Urine RBC 3 /hpf (0 - 4) Urine Microscopic WBC 44 /HPF (0-5) H Urine Squamous Epithelial Cells Few /hpf (<5) Urine Bacteria Few /hpf (None Seen) H Urine Glucose Normal mg/dL (Normal) Labs and/or images reviewed: Labs reviewed by me Assessment/Plan Assessment/Plan -symptomatic bradycardia -primary hypertension -hypothyroidism -dyslipidemia -obesity -breast cancer Plan: -discussed case with Cardiology. Plans for Permanent pacemaker implant. -continue antihypertensives, statins. Patient without any beta jose manuel calcium channel jose manuel therapy -continue thyroid supplementation -echocardiogram: Results reviewed -cardiology consultation: recommendations reviewed -repeat labs in a.m. This medical document was created using an electronic medical record system with [employer] direct computerized dictation system. Although this document has been carefully reviewed, there may still be some phonetic and typographical errors. These areas are purely typographical due to imperfections of the software programs, and do not reflect any compromise in the patient's medical care. Plan discussed with: Patient Date of Service: Oct 10, 2024 Billing Provider: SANDI WILLAMS MD Common Visit Codes: [id number] INP/OBS CARE(HIGH) SANDI WILLAMS MD Oct 11, 2024 09:40
--- NOTE | 2024-10-11 09:59 | DVHPN2 ---
Progress Note Date Seen: Oct 11, 2024 Medical Necessity Reason Pt with a Central, PICC or Fol: No Subjective Patient reports: Feels better Objective vital signs Vital Sign Date Time Temp Pulse Resp B/P (MAP) Pulse Ox O2 Delivery O2 Flow Rate FiO2 10/11/24 09:12 98.2 44 16 112/32 (58) 95 98.2 10/10/24 20:00 Room Air* 0 21 Total Intake and Output 10/10/24 10/10/24 10/11/24 15:00 23:00 07:00 Intake Total 2420 ml Output Total 600 ml Balance 2420 ml -600 ml medications Current Medications Medications Dose Ordered Sig/Linda Route Start Time Stop Time Status Last Admin Dose Admin Nitroglycerin 0.4 mg Q5MINP PRN SL 10/08/24 15:45 Morphine Sulfate 2 mg Q30M PRN IV 10/08/24 15:45 Hydralazine HCl 10 mg Q6HP PRN IV 10/08/24 15:45 Patient Own Medication 1 tab DAILY PO 10/09/24 10:00 UNV Patient Own Medication 1 tab DAILY PO 10/09/24 10:00 UNV Lisinopril 10 mg DAILY PO 10/09/24 10:00 10/10/24 10:27 10 MG Examination: GENERAL:Abnormal, HEENT:Abnormal, LUNGS:Abnormal, CVS:Abnormal, ABDOMEN:Abnormal laboratory and microbiology Laboratory Tests 10/10/24 06:17 10/08/24 12:13 Test 10/10/24 06:17 Range/Units Serum Glucose 93 74-106 mg/dL Problem List/Assessment/Plan Problem List/Assessment/Plan bradycardia chest pain htn obesity breast cancer had long talk [facility] pt and RN czech speaking, offered ppm given 2 episodes of davion going to ER in past 1 year, chronic low HR, pt tells me her cancer team is worried about her low HR not on any avn agents pt agrees to ppm at this time 2/2 to sick sinus syndrome she agrees Plan discussed with: Patient My Orders My Orders Orders - BRADFORD LYNCH MD Procedure Category Date Status Time Cl Ins Pacemaker CL 10/10/24 Logged Fluoro & S&I 14:32 Date of Service: Oct 11, 2024 Billing Provider: BRADFORD LYNCH MD Common Visit Codes: NOT BILLABLE BRADFORD LYNCH MD Oct 11, 2024 09:59
--- NOTE | 2024-10-11 12:30 | DVHPN2 ---
Subjective The patient seems him at bedside. No change overnight. Reviewed: Care Plan, H&P, Labs, Medications Changes from previous H/P or p: No Changes General: Per HPI Eyes: No Pain, No Vision change, No Conjunctivae inflammation, No Eyelid inflammation, No Other, No Redness ENT: No Ear pain, No Ear discharge, No Nose pain, No Nose discharge, No Nose congestion, No Mouth pain, No Mouth swelling, No Throat pain, No Throat swelling, No Other Cardiovascular: Chest Pain Respiratory: No Cough, No Dry, No Shortness of breath, No SOB with excertion, No Wheezing, No Hemoptysis, No Pleuritic Pain, No Sputum, No Other Gastrointestinal: No Nausea, No Vomiting, No Abdominal Pain, No Diarrhea, No Constipation, No Melena, No Hematochezia, No Other Genitourinary: No Dysuria, No Frequency, No Incontinence, No Hematuria, No Retention, No Other Musculoskeletal: No other, No neck pain, No shoulder pain, No arm pain, No back pain, No hand pain, No leg pain, No foot pain Skin: No Rash, No Lesions, No Jaundice, No Bruising, No Other Objective Vitals Vital Signs Date Time Temp Pulse Resp B/P (MAP) Pulse Ox O2 Delivery O2 Flow Rate FiO2 10/11/24 10:23 112/32 10/11/24 09:12 98.2 44 16 95 98.2 10/10/24 20:00 Room Air* 0 21 Intake/Output Intake and Output 10/11/24 07:00 Intake Total 2420 ml Output Total 600 ml Balance 1820 ml Intake Oral 2420 ml Output Urine Total 600 ml # Voids 6 # Bowel Movements 2 General Appearance: Alert, Oriented X3, Cooperative, No acute distress HEENT: Atraumatic, PERRLA Lungs: Clear to auscultation, Normal air movement Cardiovascular: Normal S1, Normal S2 Abdomen: Normal bowel sounds, Soft, No tenderness, No hepatospenomegaly, No masses Musculoskeletal: Normal sensory function, Normal motor function Neuro: Normal gait, Normal speech Psych/Mental Status: Mental status NL, Mood NL Medications Current Medications Medications Dose Ordered Sig/Linda Route Start Time Stop Time Status Last Admin Dose Admin Nitroglycerin 0.4 mg Q5MINP PRN SL 10/08/24 15:45 Morphine Sulfate 2 mg Q30M PRN IV 10/08/24 15:45 Hydralazine HCl 10 mg Q6HP PRN IV 10/08/24 15:45 Patient Own Medication 1 tab DAILY PO 10/09/24 10:00 UNV Patient Own Medication 1 tab DAILY PO 10/09/24 10:00 UNV Lisinopril 10 mg DAILY PO 10/09/24 10:00 10/11/24 10:23 10 MG Laboratory Results Laboratory Tests 10/08/24 12:13 10/10/24 06:17 Urinalysis Test 10/08/24 14:20 Urine Color Colorless (Yellow) Urine Clarity Turbid (Clear) H Urine pH 6.5 (5.0-9.0) Urine Specific [place] 1.006 (1.001-1.035) Urine Protein Negative (Negative) Urine Ketones Negative (Negative) Urine Blood Trace /uL (Negative) H Urine Nitrite 1+ (Negative) H Urine Bilirubin Negative (Negative) Urine Urobilinogen Normal mg/dL (Negative) Urine Leukocyte Esterase 3+ /uL (Negative) Urine RBC 3 /hpf (0 - 4) Urine Microscopic WBC 44 /HPF (0-5) H Urine Squamous Epithelial Cells Few /hpf (<5) Urine Bacteria Few /hpf (None Seen) H Urine Glucose Normal mg/dL (Normal) Labs and/or images reviewed: Labs reviewed by me Assessment/Plan Assessment/Plan -symptomatic bradycardia -primary hypertension -hypothyroidism -dyslipidemia -obesity -breast cancer Plan: -discussed case with Cardiology. Plans for Permanent pacemaker implant. -continue antihypertensives, statins. Patient without any beta jose manuel calcium channel jose manuel therapy -continue thyroid supplementation -echocardiogram: Results reviewed -cardiology consultation: recommendations reviewed -repeat labs in a.m. This medical document was created using an electronic medical record system with [employer] direct computerized dictation system. Although this document has been carefully reviewed, there may still be some phonetic and typographical errors. These areas are purely typographical due to imperfections of the software programs, and do not reflect any compromise in the patient's medical care. Plan discussed with: Patient Date of Service: Oct 11, 2024 Billing Provider: SANDI WILLAMS MD Common Visit Codes: [id number] INP/OBS CARE(HIGH) SANDI WILLAMS MD Oct 11, 2024 12:30
--- NOTE | 2024-10-11 18:10 | DVHPN2 ---
Progress Note - Dictate Date Seen: Oct 11, 2024 Medical Necessity Reason Pt with a Central, PICC or Fol: No Subjective Patient was seen and evaluated in follow up. No overniht events. Patient i=denies any pain or discomfort. HR in the 40's. Patient is pending PPM insertion. Telemetry reviewed. vital signs Vital Sign Date Time Temp Pulse Resp B/P (MAP) Pulse Ox O2 Delivery O2 Flow Rate FiO2 10/11/24 10:23 112/32 10/11/24 09:12 98.2 44 16 95 98.2 10/11/24 08:10 Room Air* 0 21 Total Intake and Output 10/10/24 10/10/24 10/11/24 15:00 23:00 07:00 Intake Total 2420 ml Output Total 600 ml Balance 2420 ml -600 ml medications Current Medications Medications Dose Ordered Sig/Linda Route Start Time Stop Time Status Last Admin Dose Admin Nitroglycerin 0.4 mg Q5MINP PRN SL 10/08/24 15:45 Morphine Sulfate 2 mg Q30M PRN IV 10/08/24 15:45 Hydralazine HCl 10 mg Q6HP PRN IV 10/08/24 15:45 Patient Own Medication 1 tab DAILY PO 10/09/24 10:00 UNV Patient Own Medication 1 tab DAILY PO 10/09/24 10:00 UNV Lisinopril 10 mg DAILY PO 10/09/24 10:00 10/11/24 10:23 10 MG objective GENERAL: Awake, alert, oriented. LUNGS: Clear. CARDIOVASCULAR: Sinus bradycardia. ABDOMEN: Soft. laboratory and microbiology Laboratory Tests 10/10/24 06:17 10/08/24 12:13 Test 10/10/24 06:17 Range/Units Serum Glucose 93 74-106 mg/dL Problem List Symptomatic bradycardia. SSS. Hypertension. Dyslipidemia. Thyroid disease. Breast cancer. Obesity. Assessment/Plan Continued all current supportive medical care. Permanent pacemaker implantation. Risks and benefits discussed with the patient. Lisinopril. Morphine for pain management. Nitro SL. Additional plan as per the hospital course. Plan discussed with: Patient ALICIA MARTINEZ MD Oct 11, 2024 13:50
[2024-10-12] VITALS (10 sets, daily range): BP systolic 92–121; BP diastolic 40–72; PULSE 20–69; RESP 16–18; TEMP 97.4–98.5; O2SAT 97–98
[2024-10-12 05:33] LABS: Basophils # (auto) 0 10 ^3/uL (0-0.2); Basophils % (auto) 0.9 % (0.0-2.0); Eosinophils # (auto) 0.3 10 ^3/uL (0-0.8); Hematocrit 35.9 % (36.0-46.0); Hemoglobin 11.9 g/dL (12.2-16.2); Lymphocytes # (auto) 1.3 10 ^3/uL (0.4-5.4); Lymphocytes % (auto) 30.4 % (10.0-50.0); Mean Corpuscular Hemoglobin 30.7 pg (28.0-32.0); Mean Corpuscular Hgb Conc. 33.2 g/dL (32.0-36.0); Mean Corpuscular Volume 92.4 fL (80.0-100.0); Monocytes # (auto) 0.3 10 ^3/uL (0-1.3); Monocytes % (auto) 7.9 % (0.0-12.0); Neutrophils # (auto) 2.3 10 ^3/uL (1.6-8.6); Neutrophils % (auto) 53.8 % (37.0-80.0); Nucleated Red Blood Cells % 0.3 %; Platelet Count (auto) 137 10^3/uL (140-450); Red Blood Cells 3.89 10^6/uL (4.0-5.20); White Blood Cell 4.2 10^3/uL (4.4-10.8)
[2024-10-12 05:46] LABS: Calcium 9.8 mg/dL (8.7-10.4); Chloride 106 mmol/L (98-107); Potassium 3.8 mmol/L (3.5-5.1); Sodium 140 mmol/L (136-145)
[2024-10-12 05:47] LABS: Anion Gap 8 (5-15); Carbon Dioxide 26 mmol/L (20-31)
[2024-10-12 05:53] LABS: BUN/Creatinine Ratio 19.3 (10.0-20.0); Blood Urea Nitrogen 22 mg/dL (9-23); Glucose 96 mg/dL (74-106)
--- NOTE | 2024-10-12 10:27 | DVHPN2 ---
Subjective Patient denies any symptoms. Reviewed: Care Plan, H&P, Labs, Medications Changes from previous H/P or p: No Changes General: Per HPI Eyes: No Pain, No Vision change, No Conjunctivae inflammation, No Eyelid inflammation, No Other, No Redness ENT: No Ear pain, No Ear discharge, No Nose pain, No Nose discharge, No Nose congestion, No Mouth pain, No Mouth swelling, No Throat pain, No Throat swelling, No Other Cardiovascular: Chest Pain Respiratory: No Cough, No Dry, No Shortness of breath, No SOB with excertion, No Wheezing, No Hemoptysis, No Pleuritic Pain, No Sputum, No Other Gastrointestinal: No Nausea, No Vomiting, No Abdominal Pain, No Diarrhea, No Constipation, No Melena, No Hematochezia, No Other Genitourinary: No Dysuria, No Frequency, No Incontinence, No Hematuria, No Retention, No Other Musculoskeletal: No other, No neck pain, No shoulder pain, No arm pain, No back pain, No hand pain, No leg pain, No foot pain Skin: No Rash, No Lesions, No Jaundice, No Bruising, No Other Objective Vitals Vital Signs Date Time Temp Pulse Resp B/P (MAP) Pulse Ox O2 Delivery O2 Flow Rate FiO2 10/12/24 09:56 109/60 10/12/24 09:00 97.8 46 18 98 97.8 10/11/24 20:00 Room Air* 0 21 Intake/Output Intake and Output 10/12/24 07:00 Intake Total 1500 ml Balance 1500 ml Intake Oral 1500 ml # Voids 8 General Appearance: Alert, Oriented X3, Cooperative, No acute distress HEENT: Atraumatic, PERRLA Lungs: Clear to auscultation, Normal air movement Cardiovascular: Normal S1, Normal S2 Abdomen: Normal bowel sounds, Soft, No tenderness, No hepatospenomegaly, No masses Musculoskeletal: Normal sensory function, Normal motor function Neuro: Normal gait, Normal speech Psych/Mental Status: Mental status NL, Mood NL Medications Current Medications Medications Dose Ordered Sig/Linda Route Start Time Stop Time Status Last Admin Dose Admin Nitroglycerin 0.4 mg Q5MINP PRN SL 10/08/24 15:45 Morphine Sulfate 2 mg Q30M PRN IV 10/08/24 15:45 Hydralazine HCl 10 mg Q6HP PRN IV 10/08/24 15:45 Patient Own Medication 1 tab DAILY PO 10/09/24 10:00 UNV Patient Own Medication 1 tab DAILY PO 10/09/24 10:00 UNV Lisinopril 10 mg DAILY PO 10/09/24 10:00 10/11/24 10:23 10 MG Acetaminophen/ Hydrocodone Bitart 1 tab Q8HPRN PRN PO 10/12/24 06:15 Laboratory Results Laboratory Tests 10/12/24 05:03 Chemistry Test 10/12/24 05:03 Calcium Level 9.8 mg/dL (8.7-10.4) Coagulation Test 10/12/24 10:03 Prothrombin Time Pending Prothrombin Time INR Pending Activated Partial Thromboplast Time Pending Urinalysis Test 10/08/24 14:20 Urine Color Colorless (Yellow) Urine Clarity Turbid (Clear) H Urine pH 6.5 (5.0-9.0) Urine Specific [place] 1.006 (1.001-1.035) Urine Protein Negative (Negative) Urine Ketones Negative (Negative) Urine Blood Trace /uL (Negative) H Urine Nitrite 1+ (Negative) H Urine Bilirubin Negative (Negative) Urine Urobilinogen Normal mg/dL (Negative) Urine Leukocyte Esterase 3+ /uL (Negative) Urine RBC 3 /hpf (0 - 4) Urine Microscopic WBC 44 /HPF (0-5) H Urine Squamous Epithelial Cells Few /hpf (<5) Urine Bacteria Few /hpf (None Seen) H Urine Glucose Normal mg/dL (Normal) Labs and/or images reviewed: Labs reviewed by me, Image(s) reviewed by me Assessment/Plan Assessment/Plan Impression: -sick sinus syndrome -primary hypertension -hypothyroidism -dyslipidemia -obesity -breast cancer Plan: Events: No events overnight. Plans for PPI placement today. -discussed case with Cardiology. Plans for Permanent pacemaker implant. -continue lisinopril -continue thyroid supplementation -repeat labs in a.m. Total time spent with patient discussing and formulating plan of care: 35 minutes. This medical document was created using an electronic medical record system with [employer] system. Although this document has been carefully reviewed, there may still be some phonetic and typographical errors. These areas are purely typographical due to imperfections of the software programs, and do not reflect any compromise in the patient's medical care. Plan discussed with: Patient, Other (RN) My Orders Orders - BROOKLYN COLEY NP Procedure Category Date Status Time Npo (Nothing By DIET 10/12/24 Verified Mouth) Diet Lunch Basic Metabolic Panel LAB 10/13/24 Verified 04:00 Hemoglobin & LAB 10/13/24 Verified Hematocrit 04:00 Date of Service: Oct 12, 2024 Billing Provider: BROOKLYN COLEY NP Common Visit Codes: [id number] INP/OBS CARE(HIGH) BROOKLYN COLEY NP Oct 12, 2024 10:27
[2024-10-12 11:00] LABS: INR 1.01 (0.9-1.15); Partial Thromboplastin Time 27.1 SEC (24.5-34.5); Prothrombin Time 10.7 sec (9.3-11.8)
--- NOTE | 2024-10-12 14:57 | DVHPN2 ---
Progress Note - Dictate Date Seen: Oct 12, 2024 Medical Necessity Reason Pt with a Central, PICC or Fol: No Subjective Patient was seen and evaluated in follow up. Patient is resting in bed. PPM insertion is tentatively planned today. H&H stable. Communications Specialist 1.14. Telemetry reviewed. vital signs Vital Sign Date Time Temp Pulse Resp B/P (MAP) Pulse Ox O2 Delivery O2 Flow Rate FiO2 10/12/24 12:44 98.5 69 16 92/54 (67) 97 98.5 10/12/24 08:00 Room Air* 0 21 Total Intake and Output 10/11/24 10/11/24 10/12/24 15:00 23:00 07:00 Intake Total 1500 ml Balance 1500 ml medications Current Medications Medications Dose Ordered Sig/Linda Route Start Time Stop Time Status Last Admin Dose Admin Nitroglycerin 0.4 mg Q5MINP PRN SL 10/08/24 15:45 Morphine Sulfate 2 mg Q30M PRN IV 10/08/24 15:45 Hydralazine HCl 10 mg Q6HP PRN IV 10/08/24 15:45 Patient Own Medication 1 tab DAILY PO 10/09/24 10:00 UNV Patient Own Medication 1 tab DAILY PO 10/09/24 10:00 UNV Lisinopril 10 mg DAILY PO 10/09/24 10:00 10/11/24 10:23 10 MG Acetaminophen/ Hydrocodone Bitart 1 tab Q8HPRN PRN PO 10/12/24 06:15 objective GENERAL: Awake, alert, oriented. LUNGS: Clear. CARDIOVASCULAR: Sinus bradycardia. ABDOMEN: Soft. laboratory and microbiology Laboratory Tests 10/12/24 05:03 Test 10/12/24 05:03 Range/Units Serum Glucose 96 74-106 mg/dL Problem List Symptomatic bradycardia. SSS. Hypertension. Dyslipidemia. Thyroid disease. Breast cancer. Obesity. Assessment/Plan Continued all current supportive medical care. Permanent pacemaker implantation. Risks and benefits discussed with the patient. Lisinopril. Morphine for pain management. Nitro SL. Additional plan as per the hospital course. Plan discussed with: Patient ALICIA MARTINEZ MD Oct 12, 2024 14:57
[2024-10-12] MEDS ORDERED: VANCOMYCIN HCL 1000 MG VL ONE ×3 (16:34→20:28)
[2024-10-12] MEDS ORDERED: fentaNYL CITRATE 100 MCG/2 ML VL ONE ×3 (16:35→19:32)
[2024-10-12] MEDS ORDERED: LIDOCAINE 2%HCL (LOCAL ANESTH.) INJ 20ML MDV ONE ×3 (16:35→19:25)
[2024-10-12] MEDS ORDERED: MIDAZOLAM HCL 2MG/2ML 2ml VIAL (1mg/ml) ONE ×3 (16:35→19:32)
[2024-10-12] MEDS ORDERED: VANCOMYCIN 1GM/250ML KIT 0 ML IV ONE (16:35)
[2024-10-12] MEDS ORDERED: VANCOMYCIN 1GM/250ML KIT 250 ML IV ONE (18:05)
[2024-10-12] MEDS ORDERED: IODIXANOL 320MG/ML 100ML BTL IV ONE (18:53)
[2024-10-12] MEDS ORDERED: HYDROmorphone HCL 2 MG/ML VL/or syr ONE (19:49)
--- NOTE | 2024-10-12 21:42 | DVH ---
CHEST RADIOGRAPH Indication: S/P PACEMAKER Technique: Single frontal view of the chest was obtained Comparison: XY CHEST PORTABLE on DOS: 01/20/24, XY CHEST XRAY 1 VIEW on DOS: 04/01/23 FINDINGS: Lines and Tubes: Numerous surgical clips in the right and left cervical soft tissues less likely from previous thyroidectomy. Dual-chamber pacemaker leads are visualized with pulse generator over the le ft chest. Lungs: No focal consolidation. Pleura: No effusion. No pneumothorax. Cardiomediastinal contours: Cardiac size is upper limits of normal Bones: No acute osseous abnormality. IMPRESSION: 1. Pulse generator in place over the left chest. 2. Surgical clips in the supraclavicular region.
[2024-10-12] MEDS: HYDROcodone-ACET 5/325MG TAB PO PRN (22:49)
[2024-10-13 00:58] VITALS: BP 117/73; PULSE 70; RESP 20; TEMP 97.9; O2SAT 98
--- NOTE | 2024-10-13 03:19 | DVHOP ---
DATE OF SURGERY: 10/12/2024 TECHNIQUES PERFORMED: * Emergency case. * Left subclavian venography. * Fluoroscopic guidance and supervision. * Insertion of a needle under fluoroscopic guidance to obtain left subclavian venous line. * Implantation of a dual-chamber permanent pacemaker from left subclavian region (permanent pacemaker, Medtronic device, MRI proof). * Interrogation of the device. ASSISTANTS: Assisted by our staff over here is Scott. Other lpn medical assistant here is Nicki. INDICATIONS: The patient has a high-degree atrioventricular block. Dr. Kuhn has seen the patient in consultation and he has recommended to have the permanent pacemaker. DESCRIPTION OF PROCEDURE: Indications, risks, benefits, all have been explained. I have interviewed the patient on 10/11/2024 also and all questions have been answered in a standard manner. The patient was brought to catheterization lab. The left area thoroughly cleaned with soap and Betadine. Left subclavian venous line also had been obtained. Under fluoroscopic guidance after doing the left subclavian venography, wire was passed, needle was removed and lidocaine was given. Incision was made 2 inches away horizontally. Subcutaneous pocket was made. Bleeding site all have been cauterized. Venous dilator was passed and subsequently 9-German venous sheath was passed. Dilator was removed and ventricular lead was in a standard manner. It was a passive lead. Subsequently, we put a 7-German venous sheath and dilator was removed and atrial lead was it also passive lead. Both the leads have been sutured very well with the help of the Ethibond at 3 different sites. Subsequently, they were further screwed in very well, put under the subcutaneous pocket. The whole area was cleaned with antibiotic solution. Vancomycin powder was applied. Antibiotic solution was applied. With the help of 2-0 Vicryl followed by 3-0, followed by 4-0 Monocryl, the whole of the wound had been very well sutured. Dermabond applied, and tincture of benzoin, Steri-Strip, Telfa, Op-Site and SafeGuard applied. The procedure went well under fluoroscopy, under conscious sedation. CONCLUSION: This is a successful procedure and we have following report available at this time. The patient's right atrium is 3.0, impendence is 689, 0.4, right ventricle 6.8, impedance 1064. Conclusion: Successful implant of dual-chamber permanent pacemaker from left subclavian region. Mary Kay Devine MD MP/GUILLERMINA/NATALIA TID: [id number] RECEIPT: [id number] [facility]
[2024-10-13 05:06] VITALS: BP 16/67; PULSE 66; RESP 20; TEMP 97.6; O2SAT 98
[2024-10-13 06:24] LABS: Hematocrit 36.6 % (36.0-46.0); Hemoglobin 12.3 g/dL (12.2-16.2)
[2024-10-13 06:27] LABS: Anion Gap 8 (5-15); Carbon Dioxide 25 mmol/L (20-31); Chloride 106 mmol/L (98-107); Potassium 4.4 mmol/L (3.5-5.1); Sodium 139 mmol/L (136-145)
[2024-10-13 06:33] LABS: BUN/Creatinine Ratio 20.9 (10.0-20.0); Blood Urea Nitrogen 18 mg/dL (9-23); Glucose 100 mg/dL (74-106)
[2024-10-13 09:00] VITALS: BP 119/78; PULSE 60; RESP 20; TEMP 98; O2SAT 97
[2024-10-13] MEDS ORDERED: HYDR-4902 PO (09:02)
[2024-10-13] MEDS ORDERED: DOXY100C79 PO (09:02)
--- NOTE | 2024-10-13 09:12 | DVHDS2 ---
Discharge Summary Date of Admission Oct 08, 2024 at 15:42 Date of Discharge: Oct 13, 2024 Admitting Diagnosis Symptomatic bradycardia Labs/Diagnostic Data: Laboratory Results Test 10/13/24 05:48 10/12/24 10:03 10/12/24 05:03 10/08/24 14:20 Hemoglobin 12.3 g/dL (12.2-16.2) Hematocrit 36.6 % (36.0-46.0) Sodium Level 139 mmol/L (136-145) Potassium Level 4.4 mmol/L (3.5-5.1) Chloride Level 106 mmol/L (98-107) Carbon Dioxide Level 25 mmol/L (20-31) Anion Gap 8 (5-15) Blood Urea Nitrogen 18 mg/dL (9-23) Creatinine 0.86 mg/dL (0.550-1.02) Glomerular Filtration Rate Calc 75 mL/min (>90) BUN/Creatinine Ratio 20.9 (10.0-20.0) Serum Glucose 100 mg/dL (74-106) Calcium Level 10.0 mg/dL (8.7-10.4) Prothrombin Time 10.7 sec (9.3-11.8) Prothrombin Time INR 1.01 (0.9-1.15) Activated Partial Thromboplast Time 27.1 SEC (24.5-34.5) White Blood Count 4.2 10^3/uL (4.4-10.8) Red Blood Count 3.89 10^6/uL (4.0-5.20) Mean Corpuscular Volume 92.4 fL (80.0-100.0) Mean Corpuscular Hemoglobin 30.7 pg (28.0-32.0) Mean Corpuscular Hemoglobin Concent 33.2 g/dL (32.0-36.0) Red Cell Distribution Width 14.0 % (11.8-14.3) Platelet Count 137 10^3/uL (140-450) Mean Platelet Volume 7.7 fL (6.9-10.8) Neutrophils (%) (Auto) 53.8 % (37.0-80.0) Lymphocytes (%) (Auto) 30.4 % (10.0-50.0) Monocytes (%) (Auto) 7.9 % (0.0-12.0) Eosinophils (%) (Auto) 7.0 % (0.0-7.0) Basophils (%) (Auto) 0.9 % (0.0-2.0) Neutrophils # (Auto) 2.3 10 ^3/uL (1.6-8.6) Lymphocytes # (Auto) 1.3 10 ^3/uL (0.4-5.4) Monocytes # (Auto) 0.3 10 ^3/uL (0-1.3) Eosinophils # (Auto) 0.3 10 ^3/uL (0-0.8) Basophils # (Auto) 0 10 ^3/uL (0-0.2) Nucleated Red Blood Cells 0.3 % Urine Color Colorless (Yellow) Urine Clarity Turbid (Clear) Urine pH 6.5 (5.0-9.0) Urine Specific [place] 1.006 (1.001-1.035) Urine Protein Negative (Negative) Urine Ketones Negative (Negative) Urine Blood Trace /uL (Negative) Urine Nitrite 1+ (Negative) Urine Bilirubin Negative (Negative) Urine Urobilinogen Normal mg/dL (Negative) Urine Leukocyte Esterase 3+ /uL (Negative) Urine RBC 3 /hpf (0 - 4) Urine Microscopic WBC 44 /HPF (0-5) Urine Squamous Epithelial Cells Few /hpf (<5) Urine Bacteria Few /hpf (None Seen) Urine Glucose Normal mg/dL (Normal) Test 10/08/24 13:11 10/08/24 12:13 Troponin I High Sensitivity 11 ng/L (</=34) Thyroid Stimulating Hormone (TSH) 1.71 uIU/mL (0.55-4.78) Erythrocyte Sedimentation Rate 30 mm/hr (0-20) Magnesium Level 1.8 mg/dL (1.6-2.6) Total Bilirubin 0.5 mg/dL (0.2-1.0) Aspartate Amino Transferase (AST) 18 U/L (13-40) Alanine Aminotransferase (ALT) 21 U/L (7-40) Alkaline Phosphatase 82 U/L (46-116) C-Reactive Protein High Sensitivity 0.20 mg/dL (<1.0) Total Protein 6.9 g/dL (5.7-8.2) Albumin 4.4 g/dL (3.2-4.8) Other Laboratory Tests 10/13/24 05:48 10/12/24 05:03 Brief Hx & Hospital Course: History of Present Illness The patient was a 64-year-old female refer to the emergency room from her primary care provider's office after being found with bradycardia. Apparently, the patient has been diagnose with low heart rate in the past, and is currently in the process of having breast cancer surgery, but reports that this has been delayed secondary to her low heart rate. While in the emergency room the patient was noted to have some left chest discomfort. Echocardiogram has been performed, currently pending. Troponins have been decreased. Significant history of the patient includes hypertension, hypothyroidism, and dyslipidemia in addition to breast cancer. Course of hospitalization: Cardiology consultation was obtained. Patient was diagnosed with sick sinus syndrome given persistent bradycardia. Patient had mild dizziness during hospitalization. Patient underwent permanent pacemaker implant yesterday, with follow up chest x-ray revealing appropriate placement as well as no signs of pneumothorax. Patient will be discharged home and be continued on antibiotic therapy as requested by Dr. Patricia Devine. She will also be provided analgesia in the form [place] 5/325 q.8 hours as needed for [id number] pain. She will continue all previous home medications and follow up with Cardiology within one week. Patient was agreeable with discharge plan. All questions answered. Physical examination General: Alert and Oriented x3. No acute distress. Well-nourished. Eyes: EOMI. Anicteric. HENT: Moist mucous membranes. Lungs: Clear to auscultation bilaterally. No accessory muscle use. Cardiovascular: Regular rate and rhythm. No murmur. No JVD. Abdomen: Soft, non-tender and non-distended. No palpable masses. Extremities: No edema. Non-tender. Skin: No rashes or lesions. Warm. Neurologic: No focal neurological deficits. CN II-XII grossly intact, but not individually tested. Psychiatric: Cooperative. Appropriate mood and affect. Total time spent with patient discussing and formulating plan of care: 35 minutes. This medical document was created using an electronic medical record system with X[employer]o dictation system. Although this document has been carefully reviewed, there may still be some phonetic and typographical errors. These areas are purely typographical due to imperfections of the software programs, and do not reflect any compromise in the patient's medical care. Consults/Reason for consult Cardiology: Sick sinus syndrome Condition at Discharge: Fair Final Diagnosis/Problems List Sick sinus syndrome, status post pacemaker implant Discharge Disposition: Home Discharge Instruct/Medications Diet: Cardiac 2g Na,low cholest Activity: See Comment Activity comment: Do not lift left arm above head, or abduct elbow from body greater than 30 for one month Follow Up/Referral: Follow up with Dr. Oskar Devine in one week Follow up with PCP in 1-2 weeks Medications: Continue all home medications Doxycycline 100 mg p.o. b.i.d. times 14 days [place] 5/325 q.8 hours as needed for [id number] pain 36 Discharge Statement: "Patient was advised to return to the ER or call 911 if any headaches, dizziness, shortness of breath, chest pain, abdominal pain, bleeding, fevers, or worsening of medical condition. Patient was counseled about treatment plan, medications, possible side effects, patientverbalized understanding. All questions were answered to the best of my ability. This discharge took greater then 30 minutes in planning, reviewing documentation, counseling the patient, and discussing with other team members." ASSESSMENT ASSESSMENT Assessment Sick sinus syndrome, status post pacemaker implant Date of Service: Oct 13, 2024 Billing Provider: BROOKLYN COLEY NP Common Visit Codes: 07721-BAI/OBS DISCH DAY >30min BROOKLYN COLEY NP Oct 13, 2024 09:12
[2024-10-13 10:44] VITALS: BP 116/67; PULSE 60; RESP 20; TEMP 98.5; O2SAT 97
--- NOTE | 2024-10-13 11:09 | ECG ---
[facility] Test Date: 2024-10-12 Test Time: 21:24:38 Pat Name: RODRICK HOPE Department: Room: 0215T B Gender: F Collet Gluer: RT : 1960 Requested By: ALICIA MARTINEZ Order Number: [id number] Reading MD: Measurements Intervals [place] Rate: 67 P: 40 LA: 204 QRS: 19 QRSD: 80 T: 37 QT: 442 QTc: 467 Interpretive Statements Sinus rhythm with occasional premature ventricular complexes Low voltage QRS Please click the below link to view image of tracing.
--- NOTE | 2024-10-13 21:36 | DVHPN2 ---
Progress Note - Dictate Date Seen: Oct 13, 2024 Medical Necessity Reason Pt with a Central, PICC or Fol: No Subjective Patient was seen and evaluated in follow up. Patient is s/p emergency left subclavian venography, implantation of a dual-chamber permanent pacemaker from left subclavian region (permanent pacemaker, Medtronic device, MRI proof). Patient tolerated the procedure well. Patient is cardiac stable for discharge. Telemetry reviewed. vital signs Vital Sign Date Time Temp Pulse Resp B/P (MAP) Pulse Ox O2 Delivery O2 Flow Rate FiO2 10/13/24 10:44 98.5 60 20 97 10/13/24 10:08 116/67 10/12/24 08:00 Room Air* 0 21 Total Intake and Output 10/12/24 10/12/24 10/13/24 15:00 23:00 07:00 Intake Total 0 ml 600 ml Balance 0 ml 600 ml medications Current Medications Medications Dose Ordered Sig/Linda Route Start Time Stop Time Status Last Admin Dose Admin Patient Own Medication 1 tab DAILY PO 10/09/24 10:00 UNV Patient Own Medication 1 tab DAILY PO 10/09/24 10:00 UNV objective GENERAL: Awake, alert, oriented. LUNGS: Clear. CARDIOVASCULAR: Sinus bradycardia. ABDOMEN: Soft. laboratory and microbiology Laboratory Tests 10/13/24 05:48 10/12/24 05:03 Test 10/13/24 05:48 Range/Units Serum Glucose 100 74-106 mg/dL Problem List Symptomatic bradycardia. SSS. Hypertension. Dyslipidemia. Thyroid disease. Breast cancer. Obesity. Assessment/Plan Continued all current supportive medical care. Lisinopril. Morphine for pain management. Nitro SL. Additional plan as per the hospital course. Dietary Evaluation Review Comments: Follow the prescribe 2GNA low fat Low cholesterol diet when out of NPO and procedures Expected Outcomes/Goals: gradual wt loss, improved cardiac health Plan discussed with: Patient ALICIA MARTINEZ MD Oct 13, 2024 21:36
== END 2024-10-13 12:39 | disposition home or self-care (01) | DRG 171 ==
LOC: ER 11:45 → OVERFLOW 15:42 → TELE-CENTR 22:00
PROVIDERS: ADMIT Nurse Practitioner Acute Care; ATTEND Nurse Practitioner Acute Care
PROC: 0JH606Z Insertion of Pacemaker, Dual Chamber into Chest Subcutaneous Tissue and Fascia, Open Approach (ICD-10-PCS; principal; 2024-10-12)
PROC: 02H63JZ Insertion of Pacemaker Lead into Right Atrium, Percutaneous Approach (ICD-10-PCS; 2024-10-12)
PROC: 02HK3JZ Insertion of Pacemaker Lead into Right Ventricle, Percutaneous Approach (ICD-10-PCS; 2024-10-12)
PROC: B517YZZ Fluoroscopy of Left Subclavian Vein using Other Contrast (ICD-10-PCS; 2024-10-12)
DX: I49.5 Sick sinus syndrome (principal); I44.2 Atrioventricular block, complete; E66.9 Obesity, unspecified; E78.5 Hyperlipidemia, unspecified; I10 Essential (primary) hypertension; E03.9 Hypothyroidism, unspecified; E11.9 Type 2 diabetes mellitus without complications; M81.0 Age-related osteoporosis without current pathological fracture; Z79.1 Long term (current) use of non-steroidal anti-inflammatories (NSAID); Z79.899 Other long term (current) drug therapy; Z87.442 Personal history of urinary calculi; Z85.3 Personal history of malignant neoplasm of breast; Z80.8 Family history of malignant neoplasm of other organs or systems; Z68.33 Body mass index [BMI] 33.0-33.9, adult
CPT/HCPCS: 33208; 36415; 71045; 71046; 80048; 80053; 81001; 83735; 84443; 84484; 85014; 85018; 85025; 85610; 85652; 85730; 86141; 86850; 86900; 86901; 93005; 93306; 96365; 99152; 99291; G0378

== ENCOUNTER 2024-10-13 23:33 | Emergency (ER) | payer MEDICAID, OTHER ==
[~2024-10-13] VITALS: Ht 154.9 cm; Wt 79.4 kg
[~2024-10-13 23:33] MED LIST changes: +DOXY100C79 PO; +HYDR-4902 PO
[2024-10-13 23:55] VITALS: BP 103/59; PULSE 62; RESP 12; O2SAT 97
--- NOTE | 2024-10-14 00:17 | ED.PDOC ---
History of Present Illness HPI Comments 64 y/o F, with a history of breast CA, DM, HLD, HTN, SSS, thyroidectomy, and pacemaker, presents for wound check, today. Patient is a Liberian speaker and endorses on coming to the ED after contacting her PCP office following recent pacemaker placement, yesterday, for associated discomfort pain around she dev eloped around site after being discharged. She was told on needing dressing to site to be relieved of air. She denies having any additional associated symptoms, currently. Chief Complaint: Wound Check Time Seen by MD: 00:00 Primary Care Provider: RIVAS Reviewed Notes: Nurses Notes, Medications, Allergies Allergies: Coded Allergies: NO KNOWN ALLERGIES (Unverified , 01/31/24) Home Meds Active Scripts Doxycycline (Monohydrate) (Doxycycline) 100 Mg Cap, 100 MG PO BID for 14 Days, #28 CAP Prov:BROOKLYN COLEY ARTISTS' BOOKING REPRESENTATIVE 10/13/24 Hydrocodone-Acetaminophen (Hydrocodone Bitartrate/AC 5-325 mg) 1 Tab Tab, 1 TAB PO Q8HR for 7 Days, #15 TAB Prov:BROOKLYN COLEY ARTISTS' BOOKING REPRESENTATIVE 10/13/24 Promethazine-Dm (Promethazine Dm 6.25-15 mg/5Ml) 1 Jessica Jessica, 10 JESSICA PO TID PRN, #200 ML Prov:JOSE LUIS JUAREZ 03/17/24 Ibuprofen Micronized (Ibuprofen) 800 Mg Tab, 800 MG PO TID PRN, #30 TAB Prov:JOSE LUIS JUAREZ 03/17/24 Reported Medications Atorvastatin Calcium (ATORVASTATIN CALCIUM) 10 Mg Tab, 1 TAB PO DAILY for high cholesterol 04/01/23 Alendronate Sodium (Alendronate Sodium) 70 Mg Tab, 1 TAB PO QWEEKLY for osteoporosis 04/01/23 Lisinopril (Lisinopril) 10 Mg Tab, 1 TAB PO DAILY for htn 04/01/23 Levothyroxine Sodium (Levothyroxine Sodium) 75 Mcg Tab, 1 TAB PO DAILY for low thyroid 04/01/23 Information Source: Patient Mode of Arrival: Ambulatory Severity: Moderate Timing: Hours Duration: Since onset Prehospital treatment: None Past Medical History PAST MEDICAL HISTORY: Cancer (breast), DM, High Lipids, HTN, Kidney Stones, Thyroid Past Medical History (Other): SSS Surgical History: Pacemaker, Thyroidectomy JACKERMAN History: Denies all JACKERMAN Hx Family History Family History: Unknown Social History Smoker: Non-Smoker Alcohol: Denies ETOH Use Drugs: Denies Drug Use Lives In: Home Constitutional: denies: chills, diaphoresis, fatigue, fever, malaise, sweats, weakness, others EENTM: denies: blurred vision, double vision, ear bleeding, ear discharge, ear drainage, ear pain, ear ringing, eye pain, eye redness, hearing loss, mouth pain, mouth swelling, nasal discharge, nose bleeding, nose congestion, nose pain, photophobia, tearing, throat pain, throat swelling, voice changes, others Respiratory: denies: cough, hemoptysis, orthopnea, SOB at rest, shortness of breath, SOB with excertion, stridor, wheezing, others Cardiovascular: denies: chest pain, dizzy spells, diaphoresis, Dyspnea on exertion, edema, irregular heart beat, left arm pain, lightheadedness, palpitations, PND, syncope, others Gastrointestinal: denies: abdomen distended, abdominal pain, blood streaked bowels, constipated, diarrhea, dysphagia, difficulty swallowing, hematemesis, melena, nausea, poor appetite, poor fluid intake, rectal bleeding, rectal pain, vomiting, others Genitourinary: denies: abnormal vagina bleeding, burning, dyspareunia, dysuria, flank pain, frequency, hematuria, incontinence, pain, , vagina discharge, urgency, others Neurological: denies: dizziness, fainting, headache, left sided numbness, left sided weakness, numbness, paresthesia, pre-existing deficit, right sided numbness, right sided weakness, seizure, speech problems, tingling, tremors, weakness, others Musculoskeletal: denies: back pain, gout, joint pain, joint swelling, muscle pain, muscle stiffness, neck pain, others Integumetry: denies: bruises, change in color, change in hair/nails, dryness, laceration, lesions, lumps, rash, wounds, others All Other Systems: Reviewed and Negative (Comprehensive systems review obtained and negative except for what is stated in the HPI.) Physical Exam General Appearance: No Apparent Distress, Normal HEENT: Normal ENT Inspection, Pharynx Normal, TMs Normal Neck: Full Range of Motion, Non-Tender, Normal, Normal Inspection Respiratory: Chest Non-Tender, Lungs Clear, No Accessory Muscle Use, No Respiratory Distress, Normal Breath Sounds Cardiovascular: No Edema, No JVD, No Murmur, No Gallop, Normal Peripheral Pulses, Regular Rate/Rhythm Breast Exam: Deferred Gastrointestinal: No Organomegaly, Non Tender, No Pulsatile Mass, Normal Bowel Sounds, Soft Genitalia: Deferred Pelvic: Deferred Rectal: Deferred Extremities: No calf tenderness, Normal capillary refill, Normal inspection, Normal range of motion, Non-tender, No pedal edema Musculoskeletal : Apperance: Normal Neurologic: Alert, client server developer II-XII nml as Tested, No Motor Deficits, Normal Affect, Normal Mood, No Sensory Deficits Cerebellar Function: Normal Reflexes: Normal Skin: Dry, Normal Color, Warm Lymphatic: No Adenopathy Was a procedure done? Was a procedure done?: No Differential Dx Considerations may include: post-op complications X-Ray, Labs, Meds, VS Vital Signs Date Time Temp Pulse Resp B/P (MAP) Pulse Ox O2 Delivery O2 Flow Rate FiO2 10/13/24 23:55 98.3 62 12 103/59 (74) 97 Time of 1ST Reevaluation: 00:30 Reevaluation 1ST: Unchanged Patient Education/Counseling: Diagnosis, Treatment Family Education/Counseling: No Family Present Departure 1 Departure Time of Disposition: 03:06 Impression: Primary Impression: Dressing change Disposition: 01 HOME / SELF CARE / HOMELESS Condition: Fair Discharged With: Self Critical Care Note Critical Care Time?: No Stability Stability form required: No Heart Score Heart Score: Heart Score Response (Comments) Value History N/A 0 EKG N/A 0 Age N/A 0 Risk Factors N/A 0 Troponin N/A 0 Total 0 I personally scribed for JOSE LUIS JUAREZ ([email or web address]) on 10/14/24 at 00:17. Electronically submitted by Anthony Carson [email or web address]). JOSE LUIS JUAREZ Oct 14, 2024 00:17
--- NOTE | 2024-10-14 00:20 | ED.PDOC ---
History of Present Illness HPI Comments Patient presents to emergency department for help deflating patient was dressing. Patient states she was admitted to telemetry has a yesterday and discharged home after having a pacemaker placed. She was sent home without a syringe to deflate pressure dressing. Patient denies any discharge. Has a mild pain to the area. Chief Complaint: Wound Check Time Seen by MD: 00:04 Primary Care Provider: RIVAS Reviewed Notes: Nurses Notes Allergies: Coded Allergies: NO KNOWN ALLERGIES (Unverified , 01/31/24) Home Meds Active Scripts Doxycycline (Monohydrate) (Doxycycline) 100 Mg Cap, 100 MG PO BID for 14 Days, #28 CAP Prov:BROOKLYN COLEY [employer]AT 10/13/24 Hydrocodone-Acetaminophen (Hydrocodone Bitartrate/AC 5-325 mg) 1 Tab Tab, 1 TAB PO Q8HR for 7 Days, #15 TAB Prov:BROOKLYN COLEY [employer]AND SPONGE [employer]AT 10/13/24 Promethazine-Dm (Promethazine Dm 6.25-15 mg/5Ml) 1 Jessica Jessica, 10 JESSICA PO TID PRN, #200 ML Prov:JOSE LUIS JUAREZ 03/17/24 Ibuprofen Micronized (Ibuprofen) 800 Mg Tab, 800 MG PO TID PRN, #30 TAB Prov:JOSE LUIS JUAREZ 03/17/24 Reported Medications Atorvastatin Calcium (ATORVASTATIN CALCIUM) 10 Mg Tab, 1 TAB PO DAILY for high cholesterol 04/01/23 Alendronate Sodium (Alendronate Sodium) 70 Mg Tab, 1 TAB PO QWEEKLY for osteoporosis 04/01/23 Lisinopril (Lisinopril) 10 Mg Tab, 1 TAB PO DAILY for htn 04/01/23 Levothyroxine Sodium (Levothyroxine Sodium) 75 Mcg Tab, 1 TAB PO DAILY for low thyroid 04/01/23 Information Source: Patient Mode of Arrival: Ambulatory Past Medical History PAST MEDICAL HISTORY: DM, HTN, Kidney Stones Surgical History: Thyroidectomy ADJUNCT PSYCHOLOGY INSTRUCTOR History: Denies all ADJUNCT PSYCHOLOGY INSTRUCTOR Hx Family History Family History: Unknown Social History Smoker: Non-Smoker Alcohol: Denies ETOH Use Drugs: Denies Drug Use Lives In: Home Constitutional: denies: chills, diaphoresis, fatigue, fever, malaise, sweats, weakness, others EENTM: denies: blurred vision, double vision, ear bleeding, ear discharge, ear drainage, ear pain, ear ringing, eye pain, eye redness, hearing loss, mouth pain, mouth swelling, nasal discharge, nose bleeding, nose congestion, nose pain, photophobia, tearing, throat pain, throat swelling, voice changes, others Respiratory: denies: cough, hemoptysis, orthopnea, SOB at rest, shortness of breath, SOB with excertion, stridor, wheezing, others Cardiovascular: denies: chest pain, dizzy spells, diaphoresis, Dyspnea on exertion, edema, irregular heart beat, left arm pain, lightheadedness, palpitations, PND, syncope, others Gastrointestinal: denies: abdomen distended, abdominal pain, blood streaked bowels, constipated, diarrhea, dysphagia, difficulty swallowing, hematemesis, melena, nausea, poor appetite, poor fluid intake, rectal bleeding, rectal pain, vomiting, others Genitourinary: denies: abnormal vagina bleeding, burning, dyspareunia, dysuria, flank pain, frequency, hematuria, incontinence, pain, , vagina discharge, urgency, others Neurological: denies: dizziness, fainting, headache, left sided numbness, left sided weakness, numbness, paresthesia, pre-existing deficit, right sided numbness, right sided weakness, seizure, speech problems, tingling, tremors, weakness, others Musculoskeletal: denies: back pain, gout, joint pain, joint swelling, muscle pain, muscle stiffness, neck pain, others Integumetry: denies: bruises, change in color, change in hair/nails, dryness, laceration, lesions, lumps, rash, wounds, others Allergic/Immunocompromised: denies: Difficulty Healing, Frequent Infections, Hives, Itching, others Hematologic/Lymphatic: denies: anemia, blood clots, easy bleeding, easy bruising, swollen glands, others Physical Exam General Appearance: No Apparent Distress, Normal HEENT: Normal ENT Inspection, Pharynx Normal, TMs Normal Neck: Full Range of Motion, Non-Tender, Normal, Normal Inspection Respiratory: Chest Non-Tender, Lungs Clear, No Accessory Muscle Use, No Respiratory Distress, Normal Breath Sounds Cardiovascular: No Edema, No JVD, No Murmur, No Gallop, Normal Peripheral Pulses, Regular Rate/Rhythm, Other (Large pressure dressing noted on left-sided chest wall over pacer) Breast Exam: Deferred Gastrointestinal: No Organomegaly, Non Tender, No Pulsatile Mass, Normal Bowel Sounds, Soft Genitalia: Deferred Pelvic: Deferred Rectal: Deferred Extremities: No calf tenderness, Normal capillary refill, Normal inspection, Normal range of motion, Non-tender, No pedal edema Musculoskeletal : Apperance: Normal Neurologic: Alert, filling station attendant II-XII nml as Tested, No Motor Deficits, Normal Affect, Normal Mood, No Sensory Deficits Cerebellar Function: Normal Reflexes: Normal Skin: Dry, Normal Color, Warm Lymphatic: No Adenopathy Was a procedure done? Was a procedure done?: No Differential Dx Considerations may include: Dressing change X-Ray, Labs, Meds, VS Vital Signs Date Time Temp Pulse Resp B/P (MAP) Pulse Ox O2 Delivery O2 Flow Rate FiO2 10/13/24 23:55 98.3 62 12 103/59 (74) 97 Time of 1ST Reevaluation: 00:20 Reevaluation 1ST: Improved Patient Education/Counseling: Diagnosis, Treatment Family Education/Counseling: Diagnosis, Treatment Departure 1 Departure Time of Disposition: 00:19 Impression: Primary Impression: Dressing change Disposition: HOME / SELF CARE / HOMELESS Condition: Fair Discharged With: Self Comments Pressure dressing was deflated, left in place. Advised to follow up with granite block paver next available appointment which would be on the . Critical Care Note Critical Care Time?: No Stability Stability form required: No Heart Score Heart Score: Heart Score Response (Comments) Value History N/A 0 EKG N/A 0 Age N/A 0 Risk Factors N/A 0 Troponin N/A 0 Total 0 JOSE LUIS JUAREZ Oct 14, 2024 00:20
== END 2024-10-14 02:27 | disposition home or self-care (01) ==
LOC: ER 23:33
DX: T85.9XXD Unspecified complication of internal prosthetic device, implant and graft, subsequent encounter (principal); E11.9 Type 2 diabetes mellitus without complications; I10 Essential (primary) hypertension; Z79.899 Other long term (current) drug therapy; Z90.49 Acquired absence of other specified parts of digestive tract; X58.XXXD Exposure to other specified factors, subsequent encounter

== ENCOUNTER 2025-01-06 15:46 | Emergency (ER) | payer MEDICAID ==
[~2025-01-06] VITALS: Ht 152.4 cm; Wt 77.2 kg
--- NOTE | 2025-01-06 16:03 | ED.PDOC ---
History of Present Illness HPI Comments 64 year old female VIOLETA presents to the ED with chief complaint of body pains. Patient reports that she has been experiencing full body pain and associated headache since last night around 10pm, worsening today. Patient denies any N/V/D, cough, SOB, chest pain, dizziness, fever, or chills. Time Seen by MD: 16:01 Primary Care Provider: RIVAS Reviewed Notes: Nurses Notes, Medications, Allergies Allergies: Coded Allergies: NO KNOWN ALLERGIES (Unverified , 01/31/24) Home Meds Active Scripts Doxycycline (Monohydrate) (Doxycycline) 100 Mg Cap, 100 MG PO BID for 14 Days, #28 CAP Prov:[employer] 10/13/24 Hydrocodone-Acetaminophen (Hydrocodone Bitartrate/AC 5-325 mg) 1 Tab Tab, 1 TAB PO Q8HR for 7 Days, #15 TAB Prov:[employer] EX[employer] 10/13/24 Promethazine-Dm (Promethazine Dm 6.25-15 mg/5Ml) 1 Jessica Jessica, 10 JESSICA PO TID PRN, #200 ML Prov:JOSE LUIS JUAREZ 03/17/24 Ibuprofen Micronized (Ibuprofen) 800 Mg Tab, 800 MG PO TID PRN, #30 TAB Prov:JOSE LUIS JUAREZ 03/17/24 Reported Medications Atorvastatin Calcium (ATORVASTATIN CALCIUM) 10 Mg Tab, 1 TAB PO DAILY for high cholesterol 04/01/23 Alendronate Sodium (Alendronate Sodium) 70 Mg Tab, 1 TAB PO QWEEKLY for osteoporosis 04/01/23 Lisinopril (Lisinopril) 10 Mg Tab, 1 TAB PO DAILY for htn 04/01/23 Levothyroxine Sodium (Levothyroxine Sodium) 75 Mcg Tab, 1 TAB PO DAILY for low thyroid 04/01/23 Information Source: Patient Mode of Arrival: EMS Severity: Moderate Timing: Hours Duration: Since onset Prehospital treatment: None Medication Refill: For: Pain Past Medical History PAST MEDICAL HISTORY: Cancer, DM, High Lipids, HTN, Kidney Stones, Thyroid Surgical History: Pacemaker, Thyroidectomy 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/EMBALMER History: Denies all 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/EMBALMER Hx Family History Family History: Unknown Social History Smoker: Non-Smoker Alcohol: Denies ETOH Use Drugs: Denies Drug Use Lives In: Home Constitutional: reports: others (Body pains); denies: chills, diaphoresis, fatigue, fever, malaise, sweats, weakness EENTM: denies: blurred vision, double vision, ear bleeding, ear discharge, ear drainage, ear pain, ear ringing, eye pain, eye redness, hearing loss, mouth pain, mouth swelling, nasal discharge, nose bleeding, nose congestion, nose pain, photophobia, tearing, throat pain, throat swelling, voice changes, others Respiratory: denies: cough, hemoptysis, orthopnea, SOB at rest, shortness of breath, SOB with excertion, stridor, wheezing, others Cardiovascular: denies: chest pain, dizzy spells, diaphoresis, Dyspnea on exertion, edema, irregular heart beat, left arm pain, lightheadedness, palpitations, PND, syncope, others Gastrointestinal: denies: abdomen distended, abdominal pain, blood streaked bowels, constipated, diarrhea, dysphagia, difficulty swallowing, hematemesis, melena, nausea, poor appetite, poor fluid intake, rectal bleeding, rectal pain, vomiting, others Genitourinary: denies: abnormal vagina bleeding, burning, dyspareunia, dysuria, flank pain, frequency, hematuria, incontinence, pain, , vagina discharg e, urgency, others Neurological: reports: headache; denies: dizziness, fainting, left sided numbness, left sided weakness, numbness, paresthesia, pre-existing deficit, right sided numbness, right sided weakness, seizure, speech problems, tingling, tremors, weakness, others Musculoskeletal: denies: back pain, gout, joint pain, joint swelling, muscle pain, muscle stiffness, neck pain, others Integumetry: denies: bruises, change in color, change in hair/nails, dryness, laceration, lesions, lumps, rash, wounds, others Allergic/Immunocompromised: denies: Difficulty Healing, Frequent Infections, Hives, Itching, others Hematologic/Lymphatic: denies: anemia, blood clots, easy bleeding, easy bruising, swollen glands, others Endocrine: denies: excessive hunger, excessive sweating, excessive thirst, excessive urination, flushing, intolerance to cold, intolerance to heat, unexplained weight gain, unexplained weight loss, others Psychiatric: denies: anxiety, bipolar disorder, depression, hopeless, panic disorder, schizophrenia, sleepless, suicidal, others All Other Systems: Reviewed and Negative Physical Exam General Appearance: No Apparent Distress, Normal HEENT: Normal ENT Inspection, Pharynx Normal, TMs Normal Neck: Full Range of Motion, Non-Tender, Normal, Normal Inspection Respiratory: Chest Non-Tender, Lungs Clear, No Accessory Muscle Use, No Respiratory Distress, Normal Breath Sounds Cardiovascular: No Edema, No JVD, No Murmur, No Gallop, Normal Peripheral Pulses, Regular Rate/Rhythm Breast Exam: Deferred Gastrointestinal: No Organomegaly, No Pulsatile Mass, Normal Bowel Sounds, Soft, Tenderness (Mild diffuse lower abdominal tenderness) Genitalia: Deferred Pelvic: Deferred Rectal: Deferred Extremities: No calf tenderness, Normal capillary refill, Normal inspection, Normal range of motion, Non-tender, No pedal edema Musculoskeletal : Apperance: Normal Neurologic: Alert, jai alai player II-XII nml as Tested, No Motor Deficits, Normal Affect, Normal Mood, No Sensory Deficits Cerebellar Function: Normal Reflexes: Normal Skin: Dry, Normal Color, Warm Lymphatic: No Adenopathy Was a procedure done? Was a procedure done?: No Differential Dx Considerations may include: URI, INFLUENZA, COVID, STREP THROAT, PHARYNGITIS, PNEUMONIA X-Ray, Labs, Meds, VS Vital Signs Date Time Temp Pulse Resp B/P (MAP) Pulse Ox O2 Delivery O2 Flow Rate FiO2 01/06/25 16:10 100.9 90 18 118/70 (86) 100 100.9 Lab Test 01/06/25 16:41 Range/Units White Blood Count 5.9 4.4-10.8 10^3/uL Red Blood Count 4.36 4.0-5.20 10^6/uL Hemoglobin 13.4 12.2-16.2 g/dL Hematocrit 39.6 36.0-46.0 % Mean Corpuscular Volume 90.7 80.0-100.0 fL Mean Corpuscular Hemoglobin 30.7 28.0-32.0 pg Mean Corpuscular Hemoglobin Concent 33.8 32.0-36.0 g/dL Red Cell Distribution Width 13.8 11.8-14.3 % Platelet Count 140 140-450 10^3/uL Mean Platelet Volume 7.4 6.9-10.8 fL Neutrophils (%) (Auto) 89.8 H 37.0-80.0 % Lymphocytes (%) (Auto) 6.1 L 10.0-50.0 % Monocytes (%) (Auto) 3.3 0.0-12.0 % Eosinophils (%) (Auto) 0.3 0.0-7.0 % Basophils (%) (Auto) 0.5 0.0-2.0 % Neutrophils # (Auto) 5.3 1.6-8.6 10 ^3/uL Lymphocytes # (Auto) 0.4 0.4-5.4 10 ^3/uL Monocytes # (Auto) 0.2 0-1.3 10 ^3/uL Eosinophils # (Auto) 0 0-0.8 10 ^3/uL Basophils # (Auto) 0 0-0.2 10 ^3/uL Nucleated Red Blood Cells 0.0 % Sodium Level 136 136-145 mmol/L Potassium Level 4.2 3.5-5.1 mmol/L Chloride Level 104 98-107 mmol/L Carbon Dioxide Level 24 20-31 mmol/L Anion Gap 8 5-15 Blood Urea Nitrogen 10 9-23 mg/dL Creatinine 1.02 0.550-1.02 mg/dL Glomerular Filtration Rate Calc 61 >90 mL/min BUN/Creatinine Ratio 9.8 L 10.0-20.0 Serum Glucose 105 74-106 mg/dL Calcium Level 10.2 8.7-10.4 mg/dL Total Bilirubin 1.2 H 0.2-1.0 mg/dL Aspartate Amino Transferase (AST) 23 13-40 U/L Alanine Aminotransferase (ALT) 25 7-40 U/L Alkaline Phosphatase 91 46-116 U/L Total Protein 7.9 5.7-8.2 g/dL Albumin 4.6 3.2-4.8 g/dL X-Ray, Labs, Meds, VS Comment IMAGING: X-RAYS AND CT SCANS WERE REVIEWED AND INTERPRETED BY THIS PROVIDER, IMAGING SHOWS NO FRACTURES AND NO PATHOLOGICAL DISEASE. PENDING RADIOLOGY REVIEW. LABORATORY: LABS REVIEWED AND INTERPRETED BY THIS PROVIDER. NO SIGNIFICANT ABNORMALITIES NOTED. PATIENT HAS PRIOR MEDICAL VISITS REVIEWED. MED RECONCILIATION PERFORMED VITAL SIGNS REVIEWED Time of 1ST Reevaluation: 17:01 Reevaluation 1ST: Unchanged Patient Education/Counseling: Diagnosis, Treatment, Need For Follow Up (FOLLOW UP WITH PCP NEXT 2-4 DAYS.) Family Education/Counseling: No Family Present Departure 1 Departure Time of Disposition: :18 Impression: Primary Impression: Lumbar disc disease Additional Impression: Viral illness Disposition: 01 HOME / SELF CARE / HOMELESS Condition: Fair e-Prescriptions Ibuprofen (Ibuprofen) 600 Mg Tab 1 TAB PO TID, #30 TAB Prov: OJSE LUIS JUAREZ 01/06/25 Discharged With: Self Critical Care Note Critical Care Time?: No Stability Stability form required: No Heart Score Heart Score: Heart Score Response (Comments) Value History N/A 0 EKG N/A 0 Age N/A 0 Risk Factors N/A 0 Troponin N/A 0 Total 0 I personally scribed for JOSE LUIS JUAREZ ([email or web address]) on 01/06/25 at 16:03. Electronically submitted by Jeff Jay ([email or web address]). JOSE LUIS JUAREZ January 06, 2025 16:03
[2025-01-06 16:10] VITALS: BP 118/70; PULSE 90; RESP 18; TEMP 100.9; O2SAT 100
[2025-01-06 16:53] LABS: Basophils # (auto) 0 10 ^3/uL (0-0.2); Basophils % (auto) 0.5 % (0.0-2.0); Eosinophils # (auto) 0 10 ^3/uL (0-0.8); Eosinophils % (auto) 0.3 % (0.0-7.0); Hematocrit 39.6 % (36.0-46.0); Hemoglobin 13.4 g/dL (12.2-16.2); Lymphocytes # (auto) 0.4 10 ^3/uL (0.4-5.4); Lymphocytes % (auto) 6.1 % (10.0-50.0); Mean Corpuscular Hemoglobin 30.7 pg (28.0-32.0); Mean Corpuscular Hgb Conc. 33.8 g/dL (32.0-36.0); Mean Corpuscular Volume 90.7 fL (80.0-100.0); Monocytes # (auto) 0.2 10 ^3/uL (0-1.3); Monocytes % (auto) 3.3 % (0.0-12.0); Neutrophils # (auto) 5.3 10 ^3/uL (1.6-8.6); Neutrophils % (auto) 89.8 % (37.0-80.0); Platelet Count (auto) 140 10^3/uL (140-450); Red Blood Cells 4.36 10^6/uL (4.0-5.20); Red Cell Distribution Width 13.8 % (11.8-14.3); White Blood Cell 5.9 10^3/uL (4.4-10.8)
[2025-01-06 17:10] LABS: Alanine Aminotransferase 25 U/L (7-40); Albumin 4.6 g/dL (3.2-4.8); Alkaline Phosphatase 91 U/L (46-116); Anion Gap 8 (5-15); Aspartate Aminotransferase 23 U/L (13-40); BUN/Creatinine Ratio 9.8 (10.0-20.0); Bilirubin, Total 1.2 mg/dL (0.2-1.0); Blood Urea Nitrogen 10 mg/dL (9-23); Calcium 10.2 mg/dL (8.7-10.4); Carbon Dioxide 24 mmol/L (20-31); Chloride 104 mmol/L (98-107); Glucose 105 mg/dL (74-106); Potassium 4.2 mmol/L (3.5-5.1); Sodium 136 mmol/L (136-145); Total Protein 7.9 g/dL (5.7-8.2)
--- NOTE | 2025-01-06 17:15 | DVH ---
CHEST RADIOGRAPH Indication: SOB Technique: Single frontal view of the chest was obtained Comparison: XY CHEST PORTABLE on DOS: 10/12/24, XY CHEST PORTABLE on DOS: 01/20/24, XY CHEST XRAY 1 VIE W on DOS: 04/01/23 FINDINGS: Lines and Tubes: None Lungs: No focal consolidation. Pleura: No effusion. No pneumothorax. Cardiomediastinal contours: Cardiac silhouette is within the limits of normal. There is uncoiling ath erosclerotic change thoracic aorta. There is a left-sided pacemaker with leads in right atrium and r ight ventricle. Bones: No acute osseous abnormality. Multiple brachytherapy radiation 6 seen in the midline base of the neck. IMPRESSION: 1. No acute cardiopulmonary disease.
[2025-01-06] MEDS ORDERED: KETOROLAC TROMETH 30 MG/ML 1ML VIAL IM ONE (21:00)
[2025-01-06] MEDS ORDERED: IBUP-1454 PO (22:19)
== END 2025-01-06 21:59 | disposition left against medical advice (07) ==
LOC: EDSEX 15:46 → EDBD 15:46 → ER 15:50
DX: M51.9 Unspecified thoracic, thoracolumbar and lumbosacral intervertebral disc disorder (principal); B34.9 Viral infection, unspecified; E11.9 Type 2 diabetes mellitus without complications; I10 Essential (primary) hypertension; Z79.899 Other long term (current) drug therapy; Z90.89 Acquired absence of other organs; Z95.0 Presence of cardiac pacemaker
CPT/HCPCS: 36415; 71045; 80053; 85025